=== PATIENT | male | born 1960 | race Caucasian/White ===

== ENCOUNTER 2017-05-31 12:43 | Emergency (ER) | payer MEDICAID, OTHER ==
[2017-05-31] MEDS ORDERED: Sodium Chloride 0.9% 10 ML Syringe FLUSH PRN (13:48)
[2017-05-31] MEDS ORDERED: Ondansetron 4 MG/2 ML SDV IVPUSH ONE (13:48)
--- NOTE | 2017-05-31 13:48 | EDM.PDOC ---
ED HPI GENERAL MEDICAL PROBLEM - General Chief Complaint: Gastrointestinal Problem Stated Complaint: POSS. APPENDICITIS Time Seen by Provider: 05/31/17 12:59 Source of Information: Reports: Patient History Limitations: Reports: No Limitations - History of Present Illness INITIAL COMMENTS - FREE TEXT/NARRATIVE: Patient is a 56-year-old male who presents to the ED complaining of right lower quadrant abdominal pain off and on for the past 3 weeks. States as of recently the pain has progressively getting worse. Pain currently described as a dull ache all the time with intermittent sharp pains as well. Pain is worsened with riding in a car hitting bumps, walking, moving his legs, with little improvement lying still. He's had no documented fever or chills. He has had some night sweats. Has been mildly nauseated intermittently with no vomiting. Denies any diarrhea, constipation, blood in his stool, dysuria, SOB, or chest pain. Last bowel movement was 4 days ago. But notes he has a poor appetite for the past week. Has lost approx. 6-7 pounds over the past wk. He has no prior history of similar symptoms. He was evaluated today at the [facility]. He had blood work obtained including: CBC, CMP, CRP, amylase, UA, and CT abdomen of the pelvis with contrast. See records for results. Past medical history includes hypertension, and alcoholism Current medications Benicar Surgical history right knee Smoking history half pack to two thirds a pack per day. Alcohol 5 days a week. Admits to having alcoholic issues. Denies any recreational drug use. Right Lower Abdomen Pain Score (Numeric/FACES): 7 - Related Data Allergies Allergy/AdvReac Type Severity Reaction Status Date / Time No Known Allergies Allergy Verified 05/31/17 13:39 Home Meds: Home Meds Cyanocobalamin (Vitamin B-12) [B-12] 6,000 mcg PO DAILY 05/31/17 [History] Ferrous Sulfate 325 mg PO BID 05/31/17 [History] Multivitamin [Multivitamins] 1 cap PO DAILY 05/31/17 [History] Olmesartan/Hydrochlorothiazide [Benicar HCT 40-25 MG] 1 tab PO DAILY 05/31/17 [ History] Sildenafil Citrate [Sildenafil] 20 mg PO ASDIRECTED 05/31/17 [History] Past Medical History HEENT History: Reports: Impaired Vision Social & Family History - Tobacco Use Smoking Status *Q: Never Smoker - Caffeine Use Caffeine Use: Reports: Coffee, Soda - Recreational Drug Use Recreational Drug Use: No ED ROS GENERAL - Review of Systems Review Of Systems: ROS reveals no pertinent complaints other than HPI. ED EXAM, GI/ABD - Physical Exam Exam: See Below Exam Limited By: No Limitations General Appearance: Alert, WD/WN, No Apparent Distress Eyes: Bilateral: Normal Appearance Ears: Hearing Grossly Normal Nose: Normal Inspection Throat/Mouth: Normal Inspection, Normal Voice, No Airway Compromise Head: Atraumatic, Normocephalic Neck: Normal Inspection, Supple, Non-Tender, Full Range of Motion. No: Lymphadenopathy (L), Lymphadenopathy (R) Respiratory/Chest: No Respiratory Distress, Rhonchi, Wheezing Cardiovascular: Normal Peripheral Pulses, Regular Rate, Rhythm, No Murmur GI/Abdominal: Normal Bowel Sounds, Soft, No Organomegaly, No Distention, McBurney's Sign, Psoas Sign, Obturator Sign, Other (Periumbilical). No: Rovsing 's Sign Back Exam: Normal Inspection Extremities: Normal Range of Motion, Non-Tender, Pedal Edema (Pitting edema midshin down bilaterally). No: Leg Pain Neurological: Alert, Oriented, CN II-XII Intact, Normal Cognition, No Motor/ Sensory Deficits Psychiatric: Normal Affect, Normal Mood Skin Exam: Warm, Dry, Intact, Normal Color Course - Vital Signs Last Recorded V/S: Last Vital Signs Temp 98.7 F 05/31/17 12:51 Pulse 90 05/31/17 17:02 Resp 18 05/31/17 17:02 BP 152/96 H 05/31/17 17:02 Pulse Ox 90 L 05/31/17 17:02 - Orders/Labs/Meds Orders: Active Orders 24 hr Category Date Time Status Peripheral IV Care [RC] . DIRECTED Care 05/31/17 13:49 Active CULTURE BLOOD [BC] Stat Lab 05/31/17 15:35 Received CULTURE BLOOD [BC] Stat Lab 05/31/17 15:43 Received Blood Culture x2 Reflex Set [OM.PC] Stat Oth 05/31/17 15:14 Ordered Peripheral IV Insertion Adult [OM.PC] Stat Oth 05/31/17 13:48 Ordered Labs: Laboratory Tests 05/31/17 05/31/17 05/31/17 Range/Units 14:04 14:04 15:43 Lactic Acid 1.0 (0.4-2.0) mmol/L Lipase 2935 H (73-393) U/L Ethyl Alcohol 0.00 (0.00) gm% Meds: Medications Discontinued Medications Generic Name Dose Route Start Last Admin Trade Name Freq PRN Reason Stop Dose Admin Hydromorphone HCl 0.5 mg 05/31/17 13:49 05/31/17 14:06 Dilaudid IVPUSH 05/31/17 13:50 0.5 mg ONETIME ONE Administration Sodium Chloride 1,000 mls @ 250 mls/hr 05/31/17 14:00 05/31/17 14:06 Normal Saline IV 250 mls/hr ASDIRECTED CECI Administration Ceftriaxone Sodium 2 gm/ 100 mls @ 200 mls/hr 05/31/17 15:41 05/31/17 15:48 Sodium Chloride IV 05/31/17 16:10 200 mls/hr ONETIME ONE Administration Ondansetron HCl 4 mg 05/31/17 13:48 05/31/17 14:06 Zofran IVPUSH 05/31/17 13:49 4 mg ONETIME ONE Administration Sodium Chloride 10 ml 05/31/17 13:48 05/31/17 14:05 Saline Flush FLUSH 10 ml ASDIRECTED PRN Administration Keep Vein Open - Re-Assessments/Exams Free Text/Narrative Re-Assessment/Exam: Labs obtained at [facility]: White blood cell count 7.8, hemoglobin is 17.8, platelet count 325, neutrophil percentage is 81, glucose 137, BUN 27, creatinine 1.49, sodium 134, potassium 3.6, CO2 34, alk phosphatase 76, AST 21, AST 18, amylase is 907, CRP is 112.7. CT abdomen and pelvis with contrast: Mild prominence/thickening of the right lower quadrant appendix which may be reactive secondary to moderate generalized ascites. This lies anterior to the cecum and should be visible on ultrasound evaluation. Early appendicitis is not excluded. Clinical correlation requested. Considered ultrasound for further evaluation. Mild hyper enhancement of gallbladder wall without gallbladder wall thickening. No dilatation of the common bile duct is identified. Consider ultrasound for further evaluation. 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 2.8 x 2.0 x 2.5 cm cystic lesion involving the tail the pancreas. 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 Geographic groundglass opacities throughout the right middle lobe. Partially visualized. Moderate ascites. Per PCP: Probable acute appendicitis. Questionable pancreatitis. Pancreatic cyst. Alcoholism. Patient currently stable but in pain. Since the ER for fluids and pain control and need for general surgery evaluation. Patient is nothing by mouth at this time. Discussed patient with Dr. Andres occupational health and safety adviser general surgeon. She request patient be transferred to [place]. Patient does not have appendicitis. He is complicated patient exceeding our capabilities. Suggests transferring to [place] for further workup of the above findings. 05/31/17 13:50 order peripheral IV with normal saline 250 mils per hour, Zofran 4 mg IVP, and Dilaudid 0.5 mg IVP. Will arrange acceptance and transport. 05/31/17 13:51Obtained lipase and UA. Blood cultures x2 plus lactic acid ordered. 05/31/17 15:15 Contacted [facility]. Spoke with Dr. Palomino patient is not a surgical candidate. Spoke with occupational health and safety adviser hospitalists Dr. Harrison. He has accepted the patient. Suggest patient be transferred by ambulance. In addition suggest starting patient on Rocephin 2 g IV for spontaneous peritonitis. Patient will be a direct admission inpatient status. 05/31/17 15:29 Discussed conversation with Patient. He is adamant in going by POV. He will not pay the ambulance discharge. Thus will get the antibiotic someplace. He will have to go through the ER at [facility] and be reevaluated all over again. Patient is aware this but does not have insurance and doesn't monitor for ambulance discharge. 05/31/17 15:42 Ordered Rocephin 2 grams IV. Will discharge patient with instructions as documented. Lipase 2935, Lactic Acid 1.0, ETOH 0.00. Departure - Departure Time of Disposition: 16:40 Disposition: DC/Tfer to Acute Hospital 02 Condition: Fair Clinical Impression: Abdominal pain in male, Elevated amylase, Cystic mass of pancreas, Alcoholic Ascites Qualifiers: Ascites type: due to alcoholic cirrhosis Qualified Code(s): K70.31 - Alcoholic cirrhosis of liver with ascites - Discharge Information Instructions: Alcohol Use Disorder, Abdominal Pain, Adult, [id number], Ascites Referrals: Oliverio Dawson MD [Primary Care Provider] - Forms: ED Department Discharge Additional Instructions: As discussed go to the [facility] in [place] as soon as you are discharged from [facility] to be evaluated and admitted to the hospital for further evaluation. Refrain from eating or drinking until cleared to do so. No driving since receiving a sedative medication. - My Orders Last 24 Hours: My Active Orders 05/31/17 13:48 Peripheral IV Insertion Adult [OM.PC] Stat 05/31/17 13:49 Peripheral IV Care [RC] . DIRECTED 05/31/17 15:14 Blood Culture x2 Reflex Set [OM.PC] Stat 05/31/17 15:35 CULTURE BLOOD [BC] Stat 05/31/17 15:43 CULTURE BLOOD [BC] Stat - Assessment/Plan Last 24 Hours: My Active Orders 05/31/17 13:48 Peripheral IV Insertion Adult [OM.PC] Stat 05/31/17 13:49 Peripheral IV Care [RC] . DIRECTED 05/31/17 15:14 Blood Culture x2 Reflex Set [OM.PC] Stat 05/31/17 15:35 CULTURE BLOOD [BC] Stat 05/31/17 15:43 CULTURE BLOOD [BC] Stat
[2017-05-31] MEDS ORDERED: HYDROmorphone 0.5 MG/0.5 ML Syringe IVPUSH ONE (13:49)
[2017-05-31] MEDS ORDERED: Sodium Chloride 0.9% 1,000 ML IV SCH (14:00)
[2017-05-31] MEDS ORDERED: cefTRIAXone 2 GM in Sodium Chloride 0.9% 100 ML IV ONE (15:41)
[2017-05-31 17:10] VITALS: BP 152/96
== END 2017-05-31 16:40 ==
LOC: JD.ED 12:43 → MERGE 12:43 → JD.ED 16:40
DX: K70.31 Alcoholic cirrhosis of liver with ascites (principal); K86.2 Cyst of pancreas; R74.8 Abnormal levels of other serum enzymes; I10 Essential (primary) hypertension; Z79.899 Other long term (current) drug therapy
CPT/HCPCS: 36415; 83605; 83690; 87040; 96361; 96365; 96375; 99285; G0480; J0696; J1170; J2405; J7030; J7040; J7050; 99284

== ENCOUNTER 2017-07-04 09:41 | Emergency (ER) | payer MEDICAID ==
[2017-07-04] MEDS ORDERED: Furosemide 40 MG/4 ML VIAL IVPUSH ONE (10:13)
[2017-07-04] MEDS ORDERED: Sodium Chloride 0.9% 10 ML Syringe FLUSH PRN (10:13)
--- NOTE | 2017-07-04 10:16 | EDM.PDOC ---
ED HPI GENERAL MEDICAL PROBLEM - General Chief Complaint: Cardiovascular Problem Stated Complaint: BOTH LEGS SWOLLEN Time Seen by Provider: 07/04/17 10:11 Source of Information: Reports: Patient, Family History Limitations: Reports: No Limitations - History of Present Illness INITIAL COMMENTS - FREE TEXT/NARRATIVE: 56-year-old male presents to the ED due to increased pain and swelling of his left lower extremity over the last 3-4 days. Patient is known to have cirrhosis the liver with ascites and has had paracentesis on several occasions. Also noted to have a large cystic lesion in the tail of pancreas which is of unclear significance. He has chronic dependent edema at all times but the left leg is been become much more swollen over the last 3-4 days and pain started in his left groin and radiates down down to the calf. When he tries to walk or stand it 's like a severe charley horse. He is appreciated oozing of serous fluid from 2 lesions on the lateral lower leg over the last day or 2 as well. No associated fever or chills. He doesn't feel that his abdomen girth is any worse than normal .He has very limited room for food. Has chronic abdominal pain that is worsened with eating. It is mostly epigastric left upper quadrant. He has had his appendix out recently through laparoscopic evaluation None of the wounds are oozing fluid. No recent change to his diuretic regime. Stools remain loose and he is on a stool softener as well. Denies any chest pain. He is sitting up however to sleep as it's more comfortable. Onset: Gradual Onset Date: 07/01/17 Duration: Day(s):, Constant, Getting Worse Location: Reports: Lower Extremity, Left Quality: Reports: Ache, Throbbing, Other (Cramping at times like a bad charley horse.) Severity: Severe Improves with: Reports: None Worsens with: Reports: Movement (Trying to walk or weight-bear) Context: Reports: Activity, Other (Known cirrhosis of the liver with ascites.). Denies: Exercise, Lifting, Sick Contact, Trauma Associated Symptoms: Reports: Loss of Appetite, Malaise, Shortness of Breath ( At times), Other (Ascites with increased abdominal girth.). Denies: Fever/ Chills, Headaches Treatments ON SITE MANAGER: Reports: Other (see below) Left Leg Pain Score (Numeric/FACES): 4 - Related Data Allergies Allergy/AdvReac Type Severity Reaction Status Date / Time No Known Allergies Allergy Verified 07/05/17 23:36 Home Meds: Home Meds Cyanocobalamin (Vitamin B-12) [B-12] 6,000 mcg PO DAILY 05/31/17 [History] Ferrous Sulfate 325 mg PO DAILY 05/31/17 [History] Multivitamin [Multivitamins] 1 tab PO DAILY 05/31/17 [History] Sildenafil Citrate [Sildenafil] 20 mg PO ASDIRECTED 05/31/17 [History] Enoxaparin Sodium [Lovenox] 65 mg SQ Q12H #9 ml 07/04/17 [Rx] Furosemide [Lasix] 40 mg PO DAILY #30 tablet 07/04/17 [Rx] Sennosides/Docusate Sodium [Senna-Docusate Sodium] 2 tab PO DAILY 07/04/17 [ History] Spironolactone 50 mg PO DAILY 07/04/17 [History] Valsartan [Diovan] 80 mg PO DAILY 07/04/17 [History] Warfarin [Coumadin] 5 mg PO DAILY #30 tablet 07/04/17 [Rx] oxyCODONE 5 mg PO Q4H 07/04/17 [History] Past Medical History HEENT History: Reports: Impaired Vision Cardiovascular History: Reports: Hypertension Respiratory History: Reports: Other (See Below) Other Respiratory History: pneumonia Gastrointestinal History: Reports: Pancreatitis - Past Surgical History GI Surgical History: Reports: Appendectomy Social & Family History - Tobacco Use Smoking Status *Q: Current Every Day Smoker Years of Tobacco use: 30 Packs/Tins Daily: 0.5 - Caffeine Use Caffeine Use: Reports: Coffee, Soda - Recreational Drug Use Recreational Drug Use: No - Living Situation & Occupation Living situation: Reports: Single (Self-employed) Occupation: Employed [employer] - Review of Systems Review Of Systems: See Below Constitutional: Reports: Malaise, Weakness, Fatigue, Decreased Appetite (Feels his weight is remaining the same.), Other. Denies: Fever, Chills, Weight Loss HEENT: Reports: No Symptoms Respiratory: Reports: Shortness of Breath (On exertion) Cardiovascular: Reports: Dyspnea on Exertion, Edema (On exertion chronically in both lower extremities with ascites in the abdomen. On accumulation of fluid in his lungs at times.) Endocrine: Reports: Fatigue GI/Abdominal: Reports: Diarrhea (Stools tend to be loose. No blood), Decreased Appetite ( ascites.), Distension ( bowel much room for food.due to ascites. ), Other (Abdominal distention due to). Denies: Nausea, Stool Incontinence, Vomiting : Reports: No Symptoms Musculoskeletal: Reports: Back Pain (Low back pain at times.) Skin: Reports: Other (Skin is breaking down outer aspect of the left lower leg due to the swelling losing serous fluid in 2 locations.) Neurological: Reports: No Symptoms Psychiatric: Reports: No Symptoms Hematologic/Lymphatic: Reports: No Symptoms Immunologic: Reports: No Symptoms ED EXAM, GENERAL - Physical Exam Exam: See Below Exam Limited By: No Limitations General Appearance: Alert, WD/WN, No Apparent Distress Eye Exam: Bilateral Eye: Normal Inspection (No jaundice.) Throat/Mouth: Normal Inspection, Normal Oropharynx Head: Atraumatic, Normocephalic Neck: Normal Inspection, Supple, Non-Tender, Full Range of Motion. No: Lymphadenopathy (L), Lymphadenopathy (R) Respiratory/Chest: Lungs Clear (Mild tachypnea at rest.), Normal Breath Sounds, No Accessory Muscle Use, Chest Non-Tender, Respiratory Distress Cardiovascular: Regular Rate, Rhythm, No Gallop, No Murmur, No Rub. No: Normal Peripheral Pulses Peripheral Pulses: 0: Radial (R), Posterior Tibial (L) (No pulses are palpable below the femorals because of severe edema particularly of the feet.), Posterior Tibial (R), Dorsalis Pedis (L), 4+: Dorsalis Pedis (R) GI/Abdominal: Soft, Non-Tender, Distended (Firm to palpation distended with a fluid wave compatible with marked ascites.), Other (Recent appendectomy done laparoscopically wounds healing well. Apical induce a period) Back Exam: Normal Inspection. No: CVA Tenderness (L), CVA Tenderness (R) Extremities: Other (Both lower extremities have edematous swelling. 2+ on the right and 4+ on the left the left is firm and hard up to the groin worrisome for underlying DVT. There is oozing from 2 small 3-4 mm ulcers developing lateral aspect of the lower leg of serous fluid. There is no active infection or cellulitis. Both feet remain grossly edematous) Neurological: Alert, Oriented, CN II-XII Intact, Normal Cognition. No: Normal Gait Psychiatric: Normal Affect Skin Exam: Warm, Dry, Intact, Normal Color, No Rash Course - Vital Signs Last Recorded V/S: Last Vital Signs Temp 36.4 C 07/04/17 09:49 Pulse 102 H 07/04/17 15:35 Resp 20 07/04/17 15:35 BP 111/71 07/04/17 15:35 Pulse Ox 96 07/04/17 15:35 - Orders/Labs/Meds Labs: Laboratory Tests 07/04/17 07/04/17 07/04/17 Range/Units 10:32 10:32 10:32 WBC 15.64 H (4.23-9.07) K/mm3 RBC 3.51 L (4.63-6.08) M/mm3 Hgb 12.1 L (13.7-17.5) gm/L Hct 36.5 L (40.1-51.0) % MCV 104.0 H (79.0-92.2) fl MCH 34.5 H (25.7-32.2) pg MCHC 33.2 (32.2-35.5) g/dl RDW Std Deviation 57.9 H (35.1-43.9) fL Plt Count 372 H (163-337) K/mm3 MPV 9.6 (9.4-12.3) fl Neutrophils % (Manual) 81 H (40-60) % Band Neutrophils % 0 (0-10) % Lymphocytes % (Manual) 16 L (20-40) % Atypical Lymphs % 0 % Monocytes % (Manual) 3 (2-10) % Eosinophils % (Manual) 0 L (0.8-7.0) % Basophils % (Manual) 0 L (0.2-1.2) Platelet Estimate Adequate Poikilocytosis 1+ slight Anisocytosis 1+ slight RBC Morph Comment Not Reportable PT 11.3 (8.0-13.0) SECONDS INR 1.03 APTT 28 (22-36) SECONDS D-Dimer, Quantitative 24.64 H (0.19-0.59) mg/L Sodium 133 L (136-145) mEq/L Potassium 3.8 (3.5-5.1) mEq/L Chloride 97 L (98-107) mEq/L Carbon Dioxide 34 H (21-32) mEq/L Anion Gap 5.8 (5-15) BUN 26 H (7-18) mg/dL Creatinine 1.6 H (0.7-1.3) mg/dL Est Cr Clr Drug Dosing 46.86 mL/min Estimated GFR (MDRD) 45 (>60) mL/min BUN/Creatinine Ratio 16.3 (14-18) Glucose 113 H (74-106) mg/dL Calcium 8.4 L (8.5-10.1) mg/dL Total Bilirubin 0.5 (0.2-1.0) mg/dL AST 14 L (15-37) U/L ALT 13 L (16-63) U/L Alkaline Phosphatase 51 (46-116) U/L Uos-B-Zueonjsmanr Pept 374 H (0-125) pg/mL Total Protein 5.5 L (6.4-8.2) g/dl Albumin 2.0 L (3.4-5.0) g/dl Globulin 3.5 gm/dL Albumin/Globulin Ratio 0.6 L (1-2) Lipase 1373 H (73-393) U/L TSH 3rd Generation (0.358-3.74) uIU/mL /05/15 Range/Units 10:32 WBC (4.23-9.07) K/mm3 RBC (4.63-6.08) M/mm3 Hgb (13.7-17.5) gm/L Hct (40.1-51.0) % MCV (79.0-92.2) fl MCH (25.7-32.2) pg MCHC (32.2-35.5) g/dl RDW Std Deviation (35.1-43.9) fL Plt Count (163-337) K/mm3 MPV (9.4-12.3) fl Neutrophils % (Manual) (40-60) % Band Neutrophils % (0-10) % Lymphocytes % (Manual) (20-40) % Atypical Lymphs % % Monocytes % (Manual) (2-10) % Eosinophils % (Manual) (0.8-7.0) % Basophils % (Manual) (0.2-1.2) Platelet Estimate Poikilocytosis Anisocytosis RBC Morph Comment PT (8.0-13.0) SECONDS INR APTT (22-36) SECONDS D-Dimer, Quantitative (0.19-0.59) mg/L Sodium (136-145) mEq/L Potassium (3.5-5.1) mEq/L Chloride (98-107) mEq/L Carbon Dioxide (21-32) mEq/L Anion Gap (5-15) BUN (7-18) mg/dL Creatinine (0.7-1.3) mg/dL Est Cr Clr Drug Dosing mL/min Estimated GFR (MDRD) (>60) mL/min BUN/Creatinine Ratio (14-18) Glucose (74-106) mg/dL Calcium (8.5-10.1) mg/dL Total Bilirubin (0.2-1.0) mg/dL AST (15-37) U/L ALT (16-63) U/L Alkaline Phosphatase (46-116) U/L Tjp-I-Woofqiduwpi Pept (0-125) pg/mL Total Protein (6.4-8.2) g/dl Albumin (3.4-5.0) g/dl Globulin gm/dL Albumin/Globulin Ratio (1-2) Lipase (73-393) U/L TSH 3rd Generation 2.237 (0.358-3.74) uIU/mL Meds: Medications Discontinued Medications Generic Name Dose Route Start Last Admin Trade Name Freq PRN Reason Stop Dose Admin Enoxaparin Sodium 65 mg 07/04/17 11:39 07/04/17 12:43 Lovenox SUBCUT 07/04/17 11:40 Not Given ONETIME ONE Enoxaparin Sodium 65 mg 07/04/17 12:17 07/04/17 12:26 Lovenox SUBCUT 07/04/17 12:18 65 mg ONETIME ONE Administration Furosemide 40 mg 07/04/17 10:13 07/04/17 10:40 Lasix IVPUSH 07/04/17 10:14 40 mg NOW ONE Administration Sodium Chloride 100 mls @ 60 mls/hr 07/04/17 12:00 07/04/17 12:10 Normal Saline IV 60 mls/hr ASDIRECTED CECI Administration Iopamidol 100 ml 07/04/17 11:52 07/04/17 12:10 Isovue-370 (76%) IVPUSH 07/04/17 11:53 70 ml ONETIME ONE Administration Sodium Chloride 10 ml 07/04/17 10:13 07/04/17 10:40 Saline Flush FLUSH 10 ml ASDIRECTED PRN Administration Keep Vein Open Sodium Chloride 10 ml 07/04/17 11:52 07/04/17 12:10 Saline Flush FLUSH 07/04/17 11:53 10 ml ONETIME ONE Administration Warfarin Sodium 10 mg 07/04/17 14:37 07/04/17 15:30 Coumadin PO 07/04/17 14:38 10 mg ONETIME ONE Administration - Radiology Interpretation Free Text/Narrative:: 56-year-old male presents to the ED because of increased pain and swelling in his left lower extremity. Pain started about 3 days ago in his left groin and subsequently his move down towards the left calf. When he stands or tries to walk as like he develops a severe charley horse. Cramping like pain that limits his ability to walk. Patient has cirrhosis of the liver with ascites and has had paracentesis in the past. Underwent recent laparoscopic appendectomy. The left leg or both legs are always swollen a bit but the left leg is grossly swollen more than normal. Did not feel that current diuretic therapy is producing much in the way of diuresis. However he doesn't feel his abdominal girth is worse than normal either. Lungs sound clear. Plan routine labs including a BMP and lipase and PTT PT. Doppler ultrasound will be done on the left lower extremity. Peripheral IV lock placed and he'll be given Lasix 40 mg IV. - Re-Assessments/Exams Free Text/Narrative Re-Assessment/Exam: 07/04/17 11:10: Labs reveal an elevated white count at 15.64 with a left shift of 81% neutrophils and no bands. Of note the patient is afebrile. Hemoglobin is 12.1 with hematocrit of 36.5. Platelets are normal at 372,000. Coags reveal a PT of 11.3 INR is 1.03 PTT is 28. All normal d-dimer came back markedly elevated at 24.64. Sodium was 133 potassium 3.8. Sodium and chloride 97 bicarbonate 34 meaning that he is a CO2 retainer. Anion gap is 5.8. Creatinine is 1.6. BUNs 26 EGFR is 45. Total protein is 5.5 with albumin fraction low at 2.0. TSH is 2.237 normal. Lipase elevated at 1373. Doppler ultrasound done on his left lower extremity reveals extensive clot throughout the entire leg. Superficial femoral vein apparently is patent. Ascites was identified on ultrasound E. The left internal iliac vein appeared to be patent. Plan CT pulmonary angiogram to be carried out to rule out pulmonary embolism since she' s been a little more short of breath than normal. BNP today is slightly elevated at 374. Plan he will be given Lovenox 65 mg subcutaneously at this time. He will be admitted to the hospital as he simply can't walk due to the severity of the pain in his left lower extremity due to the extensive clot. 07/04/17 13:[address] pulmonary angiogram there are several pulmonary emboli appreciated within the segmental branches of the right upper lobe and left lower pulmonary arteries. Segmental clot is also seen within the lingular pulmonary artery on the left side. Segmental clot extends into the left lower lung. Slight parenchymal densities noted in the right upper lung most likely due to areas of atelectasis and fibrosis. Difficult to exclude a middle right upper lobar pneumonia. Treatment remains the same. Case discussed with Dr. Morales and he will revisit with the patient in the ED. Today his multiple problems he's considering whether or not he is a patient or candidate for admission here versus going back to [facility] in [place]. Patient was in [facility] June 02 and and I believe an MRI of his abdomen was carried out at that time. We will try and obtain these records. 07/04/17:9933: I did discuss case with medical facilities section director hospitalist at [facility] and he refused to accept Mr. Rojas is a patient. He felt he could be managed here in [place] with Lovenox shots. Dr. zayas it did not become important in keeping the patient here. Therefore alternative arrangements were made for the patient received Lovenox subcutaneously on his own volition at his home. He was shown a video and again demonstrated subcutaneous saline injections so that he could give himself Lovenox shots at home. He'll be placed on Coumadin 10 mg now 7.5 mg tomorrow and then start 5 mg daily. He is to follow with Dr. luna in the clinic on for PT/INR and see if he needs to continue with Lovenox shots. He will elevate his left leg is much as possible and apply heat packs to the area to try and reduce clot burden. He feels he can live on clear fluids in regards to his pancreatitis is the abdominal pain is not that bad at this time and he has pain medication at home. Departure - Departure Time of Disposition: 14:38 Disposition: Home, Self-Care 01 Reason for Transfer *Q: Other Condition: Fair Clinical Impression: Pulmonary embolism, bilateral Left leg DVT Qualifiers: Affected thrombotic vein of extremity: unspecified lower extremity proximal vein Chronicity: acute Qualified Code(s): I82.4Y2 - Acute embolism and thrombosis of unspecified deep veins of left proximal lower extremity Ascites Qualifiers: Ascites type: due to alcoholic cirrhosis Qualified Code(s): K70.31 - Alcoholic cirrhosis of liver with ascites Pancreatitis, chronic Qualifiers: Pancreatitis type: idiopathic Qualified Code(s): K86.1 - Other chronic pancreatitis Prescriptions: Enoxaparin Sodium [Lovenox] 65 mg SQ Q12H #9 ml Furosemide [Lasix] 40 mg PO DAILY #30 tablet Warfarin [Coumadin] 5 mg PO DAILY #30 tablet Instructions: Ascites, Pulmonary Embolism, Deep Vein Thrombosis Referrals: Oliverio Dawson MD [Primary Care Provider] - Forms: ED Department Discharge Additional Instructions: Evaluation in the emergency department today in regards to painful swollen left lower extremity that has developed over the last 3-4 days. Investigations completed identified substantial clot or deep venous thrombosis throughout the left lower extremity. CT pulmonary angiogram also revealed small worsens of blood clot her broken off from the leg and have traveled into some of the arteries in both lungs. This is called pulmonary embolism. This is somehow related to the fluid accumulation in your abdomen i.e. ascites. The reason for the ascites is yet to be determined and thus the reason you're going to [place] for further investigations on the are 14 of this month. Treatment decisions been made to allow you to be treated at home by giving yourself Lovenox injections every 12 hours for the next 5 days. Lovenox injection would be due would say at midnight tonight and then at 12:00 / noon tomorrrow. Should try and elevate the leg is much as possible and stay off the leg is much as possible for the next 3 days until the medication is working well and the clot is less likely to break loose and travel from the leg to the lung. You are to start Coumadin today and 10 mg dose was given in the ED then you need to take 1-1/2 tablets of the 5 mg strength tomorrow then 5 mg or 1 tablet daily after this. You will need a PT/INR or checkup on the Coumadin level at the clinic on this week. Please make arrangements to follow- up with Dr. Manning in this regard. Warm packs or hot water bottle to the leg is much as possible will help resolve blood clot within the veins of the leg. Return to the emergency room if any further difficulties occur. Medication can be picked up at [facility] pharmacy across the street from [facility] this afternoon. A open till 4:00 pm. Medication changes are to discontinue hydrochlorothiazide and replace with Lasix or furosemide 40 mg once daily in the morning with the Aldactone 50 mg tablet once daily in the morning. These will be used for fluid retention to control the amount of fluid accumulation in your legs and abdomen.
[2017-07-04] MEDS ORDERED: Enoxaparin 60 MG/0.6 ML Syringe SUBCUT ONE (11:39)
[2017-07-04] MEDS ORDERED: Iopamidol 755 Mg/ML 100 ML Bottle IVPUSH ONE (11:52)
[2017-07-04] MEDS ORDERED: Sodium Chloride 0.9% 10 ML Syringe FLUSH ONE (11:52)
--- NOTE | 2017-07-04 11:55 | US ---
Left lower extremity venous ultrasound: Duplex and color flow imaging was obtained of the left common femoral, proximal greater saphenous, superficial femoral, popliteal, posterior tibial and peroneal veins. Right common femoral vein was also evaluated. Lack of compression and phasic flow is seen throughout the left lower extremity with the exception of the greater saphenous vein which is compressible. Right common femoral vein is patent. Impression: 1. Extensive clot throughout the left lower extremity with patency of the greater saphenous vein and right common femoral vein. Diagnostic code #5
[2017-07-04] MEDS ORDERED: Sodium Chloride 0.9% 100 ML IV SCH (12:00)
[2017-07-04] MEDS ORDERED: Enoxaparin 80 MG/0.8 ML Syringe SUBCUT ONE (12:17)
--- NOTE | 2017-07-04 12:46 | CT ---
CT chest Technique: Multiple axial sections were obtained to the chest. Intravenous contrast was utilized. Study was performed as a pulmonary angiogram protocol. Findings: Moderate amount of ascites is seen within the upper abdomen. No pericardial thickening is seen. Heart size appears within normal limits. Several pulmonary emboli are seen within segmental branches of the right upper lobe and left lower pulmonary arteries. Segmental clot is seen within the lingular pulmonary artery. Segmental clot extends into the left lower lung. No other pulmonary emboli are seen on this exam. Mediastinum and hilar regions show no adenopathy or mass. Slight parenchymal density is noted within the right upper lung most likely due to areas of atelectasis and fibrosis. Difficult to completely exclude a mild right upper lobe pneumonia. Lungs otherwise are clear. Bone window settings were reviewed which shows scattered degenerative change within the spine. Several subacute right-sided rib fractures are seen which are incompletely healed and show mild callus. Impression: 1. Small pulmonary emboli as described above. 2. Several subacute rib fractures within the right chest. 3. Nonspecific ascites within the upper abdomen. 4. Mild areas of increased density within the right upper lung most likely due to areas of fibrosis and atelectasis although difficult to exclude pneumonia. Diagnostic code #5
[2017-07-04] MEDS ORDERED: Warfarin 10 MG Tab PO ONE (14:37)
[2017-07-04 16:04] VITALS: BP 111/71
== END 2017-07-04 15:40 | disposition home or self-care (01) ==
LOC: JD.ED 09:41
DX: I26.99 Other pulmonary embolism without acute cor pulmonale (principal); I82.4Y2 Acute embolism and thrombosis of unspecified deep veins of left proximal lower extremity; K70.31 Alcoholic cirrhosis of liver with ascites; K86.1 Other chronic pancreatitis; I10 Essential (primary) hypertension; F17.210 Nicotine dependence, cigarettes, uncomplicated; Z79.01 Long term (current) use of anticoagulants; Z87.01 Personal history of pneumonia (recurrent); Z90.49 Acquired absence of other specified parts of digestive tract; Z79.899 Other long term (current) drug therapy
CPT/HCPCS: 36415; 71275; 80053; 83690; 83880; 84443; 85025; 85379; 85610; 85730; 93971; 96372; 96374; 99284; A9270; J1650; J1940; J7030; J7050; Q9967

== ENCOUNTER 2017-07-05 23:26 | Emergency (ER) | payer MEDICAID ==
[2017-07-05 23:41] VITALS: BP 95/69
[2017-07-06] MEDS ORDERED: Sodium Chloride 0.9% 10 ML Syringe FLUSH PRN (00:15)
[2017-07-06] MEDS ORDERED: Ondansetron 4 MG/2 ML SDV IVPUSH ONE (00:17)
[2017-07-06] MEDS ORDERED: Sodium Chloride 0.9% 500 ML IV ONE ×2 (00:17→01:48)
--- NOTE | 2017-07-06 00:18 | EDM.PDOC ---
ED HPI GENERAL MEDICAL PROBLEM - General Chief Complaint: Respiratory Problem Stated Complaint: IN PAIN/CAN'T CATCH BREATH Time Seen by Provider: 07/05/17 23:47 Source of Information: Reports: Patient, RN Notes Reviewed - History of Present Illness INITIAL COMMENTS - FREE TEXT/NARRATIVE: 56-year-old male comes in with right lower chest discomfort, dyspnea, right upper abdominal pain, ascites, nausea generalized weakness and dizziness. He was evaluated here water day and a half ago increasing left lower extremity pain and swelling. He was diagnosed with a venous thrombosis of his left lower extremity, CT pulmonary angiogram did show multiple PE primarily of the right upper lung and left lower lung. See radiology reports for details. Attempts for admission here to our hospital and also verbal report of attempt to transfer to one of the [facility], I believe [facility] did not work out. 4 patient was allowed to go home self administering Lovenox. He did have 2 Lovenox injections yesterday, one this past morning but has not yet had his p.m. injection. He comes in this evening stating that "it is not working out at home. He has no appetite, nausea is worsening. He feels dizzy, weak, lightheaded when standing. He does have worsening discomfort as mentioned right lower chest and also right upper abdomen that is worse with breathing. He has had worsening difficulty with ascites apparently for the past several months. He did have his appendix out just over a month ago. He is reported to have a cyst on the tail of his pancreas. His amylase was elevated yesterday. Other labs as documented. Right Flank Pain Score (Numeric/FACES): 7 - Related Data Allergies Allergy/AdvReac Type Severity Reaction Status Date / Time No Known Allergies Allergy Verified 07/05/17 23:36 Home Meds: Home Meds Cyanocobalamin (Vitamin B-12) [B-12] 6,000 mcg PO DAILY 05/31/17 [History] Ferrous Sulfate 325 mg PO DAILY 05/31/17 [History] Multivitamin [Multivitamins] 1 tab PO DAILY 05/31/17 [History] Sildenafil Citrate [Sildenafil] 20 mg PO ASDIRECTED 05/31/17 [History] Enoxaparin Sodium [Lovenox] 65 mg SQ Q12H #9 ml 07/04/17 [Rx] Furosemide [Lasix] 40 mg PO DAILY #30 tablet 07/04/17 [Rx] Sennosides/Docusate Sodium [Senna-Docusate Sodium] 2 tab PO DAILY 07/04/17 [ History] Spironolactone 50 mg PO DAILY 07/04/17 [History] Valsartan [Diovan] 80 mg PO DAILY 07/04/17 [History] Warfarin [Coumadin] 5 mg PO DAILY #30 tablet 07/04/17 [Rx] oxyCODONE 5 mg PO Q4H 07/04/17 [History] Past Medical History HEENT History: Reports: Impaired Vision Other HEENT History: Wears glasses Cardiovascular History: Reports: Blood Clots/VTE/DVT, Hypertension Respiratory History: Reports: PE, Other (See Below) Other Respiratory History: pneumonia Gastrointestinal History: Reports: Pancreatitis - Past Surgical History GI Surgical History: Reports: Appendectomy Social & Family History - Tobacco Use Smoking Status *Q: Current Every Day Smoker Years of Tobacco use: 30 Packs/Tins Daily: 0.5 - Caffeine Use Caffeine Use: Reports: Coffee, Soda - Recreational Drug Use Recreational Drug Use: No - Living Situation & Occupation Living situation: Reports: Single (Self-employed) Occupation: Employed ED ROS GENERAL - Review of Systems Review Of Systems: See Below Constitutional: Denies: Fever, Chills, Diaphoresis HEENT: Denies: Throat Pain Respiratory: Reports: Shortness of Breath, Pleuritic Chest Pain, Cough. Denies : Sputum, Hemoptysis Cardiovascular: Reports: Chest Pain (Right lower chest) GI/Abdominal: Reports: Abdominal Pain (Right upper abdomen), Nausea. Denies: Diarrhea, Vomiting : Reports: No Symptoms Musculoskeletal: Reports: Back Pain (Right back) Skin: Reports: No Symptoms. Denies: Rash Neurological: Reports: Dizziness, Difficulty Walking, Weakness (Generalized). Denies: Numbness, Tingling ED EXAM, GENERAL - Physical Exam Exam: See Below General Appearance: Alert, Moderate Distress Eye Exam: Bilateral Eye: PERRL Throat/Mouth: Normal Inspection, Normal Oropharynx Head: Atraumatic. No: Facial Swelling Neck: Supple. No: Lymphadenopathy (L), Lymphadenopathy (R) Respiratory/Chest: Respiratory Distress. No: Rales, Rhonchi (Moderate tachypnea noted), Wheezing, Retractions Cardiovascular: Tachycardia GI/Abdominal: Distended (Moderate distention compatible with chronic ascites), Tender (Upper mid abdomen, right upper quadrant) Back Exam: CVA Tenderness (R) Extremities: Pedal Edema (Mild left leg), Leg Pain (He does have some tenderness of the posterior left calf). No: Increased Warmth, Redness Neurological: Alert, Oriented, No Motor/Sensory Deficits Skin Exam: Warm, Dry, Normal Color EKG INTERPRETATION EKG Date: 07/05/17 Rhythm: NSR [place]: Normal P-Wave: Present QRS: Other (Q waves V2) ST-T: Normal Course - Vital Signs Last Recorded V/S: Last Vital Signs Temp 97.5 F 07/05/17 23:36 Pulse 107 H 07/05/17 23:36 Resp 18 07/05/17 23:36 BP 95/69 07/05/17 23:36 Pulse Ox 91 L 07/05/17 23:36 - Orders/Labs/Meds Orders: Active Orders 24 hr Category Date Time Status EKG 12 Lead [EKG Documentation Completion] [RC] STAT Care 07/06/17 00:14 Active Oxygen Therapy [RC] ASDIRECTED Care 07/06/17 00:14 Active Peripheral IV Care [RC] . DIRECTED Care 07/06/17 00:15 Active Chest 1V Frontal [CR] Stat Exams 07/06/17 00:14 Taken Sodium Chloride 0.9% [Normal Saline] 1,000 ml Med 07/06/17 03:30 Active IV ASDIRECTED Sodium Chloride 0.9% [Saline Flush] Med 07/06/17 00:15 Active 10 ml FLUSH ASDIRECTED PRN Peripheral IV Insertion Adult [OM.PC] Stat Oth 07/06/17 00:14 Ordered Medication Orders Sodium Chloride (Normal Saline) 1,000 mls @ 75 mls/hr IV ASDIRECTED CECI Last Admin: 07/06/17 03:29 Dose: 75 mls/hr Sodium Chloride (Saline Flush) 10 ml FLUSH ASDIRECTED PRN PRN Reason: Keep Vein Open Labs: Laboratory Tests 07/06/17 07/06/17 07/06/17 Range/Units 00:29 00:29 00:29 WBC 14.31 H (4.23-9.07) K/mm3 RBC 3.59 L (4.63-6.08) M/mm3 Hgb 12.3 L (13.7-17.5) gm/L Hct 36.8 L (40.1-51.0) % MCV 102.5 H (79.0-92.2) fl MCH 34.3 H (25.7-32.2) pg MCHC 33.4 (32.2-35.5) g/dl RDW Std Deviation 56.0 H (35.1-43.9) fL Plt Count 391 H (163-337) K/mm3 MPV 9.5 (9.4-12.3) fl Neut % (Auto) 81.4 H (34.0-67.9) % Lymph % (Auto) 4.3 L (21.8-53.1) % [place] % (Auto) 13.2 H (5.3-12.2) % Eos % (Auto) 0.3 L (0.8-7.0) Baso % (Auto) 0.2 (0.1-1.2) % Neut # (Auto) 11.64 H (1.78-5.38) K/mm3 Lymph # (Auto) 0.62 L (1.32-3.57) K/mm3 [place] # (Auto) 1.89 H (0.30-0.82) K/mm3 Eos # (Auto) 0.05 (0.04-0.54) K/mm3 Baso # (Auto) 0.03 (0.01-0.08) K/mm3 Manual Slide Review Abnormal smear PT 38.1 H (8.0-13.0) SECONDS INR 3.24 Sodium 132 L (136-145) mEq/L Potassium 4.0 (3.5-5.1) mEq/L Chloride 95 L (98-107) mEq/L Carbon Dioxide 33 H (21-32) mEq/L Anion Gap 8.0 (5-15) BUN 27 H (7-18) mg/dL Creatinine 1.7 H (0.7-1.3) mg/dL Est Cr Clr Drug Dosing 44.10 mL/min Estimated GFR (MDRD) 42 (>60) mL/min BUN/Creatinine Ratio 15.9 (14-18) Glucose 131 H (74-106) mg/dL Calcium 8.4 L (8.5-10.1) mg/dL Total Bilirubin 0.3 (0.2-1.0) mg/dL AST 15 (15-37) U/L ALT 13 L (16-63) U/L Alkaline Phosphatase 48 (46-116) U/L Total Protein 5.3 L (6.4-8.2) g/dl Albumin 2.0 L (3.4-5.0) g/dl Globulin 3.3 gm/dL Albumin/Globulin Ratio 0.6 L (1-2) Amylase 1105 H* (25-115) U/L Lipase 2192 H (73-393) U/L Meds: Medications Generic Name Dose Route Start Last Admin Trade Name Freq PRN Reason Stop Dose Admin Sodium Chloride 1,000 mls @ 75 mls/hr 07/06/17 03:30 07/06/17 03:29 Normal Saline IV 75 mls/hr ASDIRECTED CECI Administration Sodium Chloride 10 ml 07/06/17 00:15 Saline Flush FLUSH ASDIRECTED PRN Keep Vein Open Discontinued Medications Generic Name Dose Route Start Last Admin Trade Name Freq PRN Reason Stop Dose Admin Hydromorphone HCl 0.5 mg 07/06/17 03:23 07/06/17 03:33 Dilaudid IVPUSH 07/06/17 03:24 0.5 mg ONETIME ONE Administration Sodium Chloride 500 mls @ 999 mls/hr 07/06/17 00:17 07/06/17 00:34 Normal Saline IV 07/06/17 00:47 999 mls/hr .BOLUS ONE Administration Sodium Chloride 500 mls @ 999 mls/hr 07/06/17 01:48 Normal Saline IV 07/06/17 02:18 .BOLUS ONE Ondansetron HCl 4 mg 07/06/17 00:17 07/06/17 03:30 Zofran IVPUSH 07/06/17 00:18 4 mg ONETIME ONE Administration - Re-Assessments/Exams Free Text/Narrative Re-Assessment/Exam: 07/06/17 03:00. Patient has multiple medical problems, the acute problem of DVT , multiple pulmonary emboli. He came in late this last evening with increasing right lower chest, right upper quadrant abdominal pain, nausea no appetite not eating or drinking well, dizziness, hypotension. He has the chronic problems of cirrhosis, pancreatic cyst, possible acute pancreatitis, what is become chronic reoccurring ascites. With that our Hospitalist production administrative assistant is recommending that he can be better served at one of the [facility] where more specialty care is available. Patient is requesting to be transferred to [facility]. I discussed this with Dr. Chuyita Rangel, hospitalist production administrative assistant who does accept patient in transfer. He will be transferred by ground ambulance. Departure - Departure Time of Disposition: 03:39 Disposition: DC/Tfer to [facility] 02 Condition: Serious Clinical Impression: Pancreatic cyst, Renal insufficiency Pulmonary embolism Qualifiers: Pulmonary embolism type: other Chronicity: acute Acute cor pulmonale presence: without acute cor pulmonale Qualified Code(s): I26.99 - Other pulmonary embolism without acute cor pulmonale Pancreatitis Qualifiers: Chronicity: chronic Pancreatitis type: unspecified pancreatitis type Qualified Code(s): K86.1 - Other chronic pancreatitis Cirrhosis Qualifiers: Hepatic cirrhosis type: unspecified hepatic cirrhosis Ascites presence: with ascites Qualified Code(s): K74.60 - Unspecified cirrhosis of liver Hypotension Qualifiers: Hypotension type: unspecified hypotension type Qualified Code(s): I95.9 - Hypotension, unspecified - Discharge Information Referrals: Oliverio Dawson MD [Primary Care Provider] - Forms: ED Department Discharge - My Orders Last 24 Hours: My Active Orders 07/06/17 00:14 EKG 12 Lead [EKG Documentation Completion] [RC] STAT Oxygen Therapy [RC] ASDIRECTED Chest 1V Frontal [CR] Stat Peripheral IV Insertion Adult [OM.PC] Stat 07/06/17 00:15 Peripheral IV Care [RC] . DIRECTED Sodium Chloride 0.9% [Saline Flush] 10 ml FLUSH ASDIRECTED PRN 07/06/17 03:30 Sodium Chloride 0.9% [Normal Saline] 1,000 ml IV ASDIRECTED - Assessment/Plan Last 24 Hours: My Active Orders 07/06/17 00:14 EKG 12 Lead [EKG Documentation Completion] [RC] STAT Oxygen Therapy [RC] ASDIRECTED Chest 1V Frontal [CR] Stat Peripheral IV Insertion Adult [OM.PC] Stat 07/06/17 00:15 Peripheral IV Care [RC] . DIRECTED Sodium Chloride 0.9% [Saline Flush] 10 ml FLUSH ASDIRECTED PRN 07/06/17 03:30 Sodium Chloride 0.9% [Normal Saline] 1,000 ml IV ASDIRECTED
[2017-07-06] MEDS ORDERED: HYDROmorphone 0.5 MG/0.5 ML Syringe IVPUSH ONE (03:23)
[2017-07-06] MEDS ORDERED: Sodium Chloride 0.9% 1,000 ML IV SCH (03:30)
--- NOTE | 2017-07-06 07:00 | CR ---
Chest: Portable view of the chest was obtained. Comparison: Previous chest x-ray of 05/17/[address] chest study of 07/04/17. Heart size is normal. Tortuous thoracic aorta is seen. Minimal parenchymal density is noted within the right lung within the upper lobe which is seen on recent chest CT either due to atelectasis, minimal infiltrate or fibrosis. Lungs otherwise are clear. Bony structures are grossly intact. Impression: 1. Minimal density within the right upper lung similar to prior chest CT with differential as described above. 2. Nothing acute is otherwise identified on portable chest x-ray. Diagnostic code #3
== END 2017-07-06 04:00 ==
LOC: JD.ED 23:26
DX: I26.99 Other pulmonary embolism without acute cor pulmonale (principal); K86.2 Cyst of pancreas; K86.1 Other chronic pancreatitis; N28.9 Disorder of kidney and ureter, unspecified; K74.60 Unspecified cirrhosis of liver; I95.9 Hypotension, unspecified; F17.210 Nicotine dependence, cigarettes, uncomplicated; I10 Essential (primary) hypertension; Z87.01 Personal history of pneumonia (recurrent); Z79.01 Long term (current) use of anticoagulants; Z79.899 Other long term (current) drug therapy
CPT/HCPCS: 36415; 71010; 80053; 82150; 83690; 85025; 85610; 93005; 96361; 96374; 96375; 99285; J1170; J2405; J7040; 99284

== ENCOUNTER 2017-10-07 15:44 | Inpatient (IN) | payer MEDICAID, OTHER ==
[2017-10-07] MEDS ORDERED: Sodium Chloride 0.9% 10 ML Syringe FLUSH PRN (16:12)
[2017-10-07] MEDS ORDERED: HYDROmorphone 1 MG/ML Syringe IVPUSH ONE (16:13)
[2017-10-07] MEDS ORDERED: Iopamidol 612 MG/ML 100 ML Bottle IVPUSH ONE (16:39)
[2017-10-07] MEDS ORDERED: Sodium Chloride 0.9% 10 ML Syringe FLUSH ONE (16:39)
[2017-10-07] MEDS ORDERED: Diatrizoate Meglumine/Diatrizoate Sodium 37% 120 ML Bottle PO ONE (16:39)
--- NOTE | 2017-10-07 16:59 | EDM.PDOC ---
ED HPI GENERAL MEDICAL PROBLEM - General Chief Complaint: Abdominal Pain Stated Complaint: ABD/FLANK PAIN Time Seen by Provider: 10/07/17 15:48 Source of Information: Reports: Patient, Provider History Limitations: Reports: No Limitations - History of Present Illness INITIAL COMMENTS - FREE TEXT/NARRATIVE: The patient presents with right lower abdominal pain and nausea. He has a history of pancreatitis from drinking. He was admitted to [facility] in [place] for about 2 months for it. He needed a G tube. He developed a DVT and PE and he has a endy filter in. He does not drink any more and he is doing good and is getting his G tube out on October 13. He has had no appetite, nausea and right lower abdominal pain for about 1 week. He went to see his doctor Dr Henriquez and he did some labs and his WBC was 16,000. His lipase was 2800. He sent him over for a CT and further management. He denies fever, chills, cough, chest pain or shortness of breath. Onset: Gradual Duration: Week(s): (1) Location: Reports: Abdomen Quality: Reports: Sharp Severity: Moderate Improves with: Reports: None Worsens with: Reports: None Associated Symptoms: Reports: Nausea/Vomiting. Denies: Chest Pain, Cough, Fever /Chills, Shortness of Breath Right Abdominal Pain Score (Numeric/FACES): 4 - Related Data Allergies Allergy/AdvReac Type Severity Reaction Status Date / Time No Known Allergies Allergy Verified 10/07/17 15:54 Home Meds: Home Meds Cyanocobalamin (Vitamin B-12) [B-12] 6,000 mcg PO DAILY 05/31/17 [History] Ferrous Sulfate 325 mg PO DAILY 05/31/17 [History] Multivitamin [Multivitamins] 1 tab PO DAILY 05/31/17 [History] Sildenafil Citrate [Sildenafil] 20 mg PO ASDIRECTED 05/31/17 [History] Enoxaparin Sodium [Lovenox] 65 mg SQ Q12H #9 ml 07/04/17 [Rx] Furosemide [Lasix] 40 mg PO DAILY #30 tablet 07/04/17 [Rx] Sennosides/Docusate Sodium [Senna-Docusate Sodium] 2 tab PO DAILY 07/04/17 [ History] Past Medical History HEENT History: Reports: Impaired Vision Other HEENT History: Wears glasses Cardiovascular History: Reports: Blood Clots/VTE/DVT, Hypertension Respiratory History: Reports: PE Other Respiratory History: pneumonia Gastrointestinal History: Reports: Pancreatitis - Past Surgical History GI Surgical History: Reports: Appendectomy Social & Family History - Tobacco Use Smoking Status *Q: Current Every Day Smoker Years of Tobacco use: 30 Packs/Tins Daily: 1 - Caffeine Use Caffeine Use: Reports: Coffee, Soda - Recreational Drug Use Recreational Drug Use: No - Living Situation & Occupation Living situation: Reports: Single (Self-employed) Occupation: Employed ED ROS GENERAL - Review of Systems Review Of Systems: See Below Constitutional: Reports: No Symptoms HEENT: Reports: No Symptoms Respiratory: Reports: No Symptoms Cardiovascular: Reports: No Symptoms Endocrine: Reports: No Symptoms GI/Abdominal: Reports: Abdominal Pain, Nausea. Denies: Diarrhea, Vomiting : Reports: No Symptoms Musculoskeletal: Reports: No Symptoms Skin: Reports: No Symptoms ED EXAM, GI/ABD - Physical Exam Exam: See Below Exam Limited By: No Limitations General Appearance: Alert, No Apparent Distress Ears: Normal External Exam Nose: Normal Inspection Head: Atraumatic, Normocephalic Neck: Normal Inspection Respiratory/Chest: No Respiratory Distress, Lungs Clear, Normal Breath Sounds Cardiovascular: Regular Rate, Rhythm, No Edema, No Murmur GI/Abdominal Exam: Soft, No Organomegaly, No Mass, Tender (Moderate pain upon palpation to the right lower abdomen.) Course - Vital Signs Last Recorded V/S: Last Vital Signs Temp 96.8 F 10/07/17 15:55 Pulse 69 10/07/17 15:55 Resp 16 10/07/17 15:55 BP 183/110 H 10/07/17 15:55 Pulse Ox 98 10/07/17 15:55 - Orders/Labs/Meds Orders: Active Orders 24 hr Category Date Time Status Peripheral IV Care [RC] . DIRECTED Care 10/07/17 16:12 Active DRUG SCREEN, URINE [URCHEM] Stat Lab 10/07/17 19:08 Uncollected ETOH [ETHANOL BLOOD MEDICAL] [CHEM] Stat Lab 10/07/17 19:08 Ordered Sodium Chloride 0.9% [Saline Flush] Med 10/07/17 16:12 Active 10 ml FLUSH ASDIRECTED PRN Peripheral IV Insertion Adult [OM.PC] Routine Oth 10/07/17 16:12 Ordered Medication Orders Sodium Chloride (Saline Flush) 10 ml FLUSH ASDIRECTED PRN PRN Reason: Keep Vein Open Last Admin: 10/07/17 16:26 Dose: 10 ml Meds: Medications Generic Name Dose Route Start Last Admin Trade Name [place] PRN Reason Stop Dose Admin Sodium Chloride 10 ml 10/07/17 16:12 10/07/17 16:26 Saline Flush FLUSH 10 ml ASDIRECTED PRN Administration Keep Vein Open Discontinued Medications Generic Name Dose Route Start Last Admin Trade Name Freq PRN Reason Stop Dose Admin Diatrizoate Meglum/Diatrizoate Sod 90 ml 10/07/17 16:39 10/07/17 17:13 Gastrografin 37% PO 10/07/17 16:40 90 ml ONETIME ONE Administration Hydromorphone HCl 1 mg 10/07/17 16:13 10/07/17 16:25 Dilaudid IVPUSH 10/07/17 16:14 1 mg ONETIME ONE Administration Iopamidol 100 ml 10/07/17 16:39 10/07/17 17:13 Isovue-300 (61%) IVPUSH 10/07/17 16:40 100 ml ONETIME ONE Administration Sodium Chloride 10 ml 10/07/17 16:39 10/07/17 17:13 Saline Flush FLUSH 10/07/17 16:40 10 ml ONETIME ONE Administration - Re-Assessments/Exams Free Text/Narrative Re-Assessment/Exam: 10/07/17 16:58 I ordered an IV NS 1L bolus, dilaudid 1mg IV and a CT of his abdomen and pelvis with IV and oral contrast. 10/07/17 17:54 His WBC was 16.25. His glucose was elevated at 142. His amylase was elevated at 370. His lipase was elevated at 2804. His CT shows resolution of low density abnormality within the periphery of the right lobe of the liver as well as resolution of the low density abnormality within the pancreas. Incidental gastrostomy tube noted. Small amount of free fluid off the inferior liver and within the dependent portion of the pelvis. This is nonspecific. Other incidental findings. No acue abnormality is appreciated. 10/07/17 19:[address] Gerber and she agreed to the admission. She wanted an alcohol and UDS done. I will add those. Departure - Departure Time of Disposition: 19:10 Disposition: Admitted As Inpatient 67 Condition: Fair Clinical Impression: Pancreatitis Qualifiers: Chronicity: chronic Pancreatitis type: unspecified pancreatitis type Qualified Code(s): K86.1 - Other chronic pancreatitis - Discharge Information Referrals: Neil Urias [Primary Care Provider] - Forms: ED Department Discharge - My Orders Last 24 Hours: My Active Orders 10/07/17 16:12 Peripheral IV Care [RC] . DIRECTED Sodium Chloride 0.9% [Saline Flush] 10 ml FLUSH ASDIRECTED PRN Peripheral IV Insertion Adult [OM.PC] Routine 10/07/17 19:08 DRUG SCREEN, URINE [URCHEM] Stat ETOH [ETHANOL BLOOD MEDICAL] [CHEM] Stat - Assessment/Plan Last 24 Hours: My Active Orders 10/07/17 16:12 Peripheral IV Care [RC] . DIRECTED Sodium Chloride 0.9% [Saline Flush] 10 ml FLUSH ASDIRECTED PRN Peripheral IV Insertion Adult [OM.PC] Routine 10/07/17 19:08 DRUG SCREEN, URINE [URCHEM] Stat ETOH [ETHANOL BLOOD MEDICAL] [CHEM] Stat
--- NOTE | 2017-10-07 17:49 | CT ---
CT abdomen and pelvis Technique: Multiple axial sections were obtained from above the dome of the diaphragm inferiorly through the pubic symphysis. Intravenous and oral contrast was utilized. Delayed images were obtained through the bladder. Comparison: Prior CT abdomen and pelvis exam of 08/16/17. Findings: Small portion of the visualized lung bases are clear. Previous study showed a low-density lesion along the periphery of the right lobe of the liver containing air which is no longer seen. Gastrostomy tube is noted. Gallbladder is slightly dilated. No focal abnormality is seen within the liver. Spleen appears within normal limits. Adrenal glands show no abnormality. Inferior vena cava filter is noted. Kidneys show symmetric contrast enhancement without hydronephrosis or mass. Pancreas appears within normal limits. Previous low density area seen within the pancreas on prior study is not identified currently. No significant inflammatory change around the pancreas is seen. Aorta and iliac vessels shows atherosclerotic change without aneurysmal dilatation. No retroperitoneal adenopathy is seen. Small amount of fluid seen off the inferior tip of the liver as well as within the dependent portion of the pelvis. No pelvic mass or adenopathy is seen. No inflammatory change is seen. Delayed images shows contrast within the bladder. Appendix is not visualized with surgical material seen near the cecum presumably from prior appendectomy. No bowel dilatation is seen. Bone window settings were reviewed which appear within normal limits for the patient's age. Impression: 1. Resolution of low density abnormality within the periphery of the right lobe of the liver as well as resolution of the low density abnormality within the pancreas. 2. Incidental gastrostomy tube noted. 3. Small amount of free fluid off the inferior liver and within the dependent portion of the pelvis. This is nonspecific. 3. Other incidental findings. No acute abnormality is appreciated. Diagnostic code #2
--- NOTE | 2017-10-07 20:01 | PCM.HP ---
H&P History of Present Illness - General Date of Service: 10/07/17 Admit Problem/Dx: Admission Diagnosis/Problem Admission Diagnosis/Problem Pancreatitis Source of Information: Patient, Provider History Limitations: Reports: No Limitations - History of Present Illness Initial Comments - Free Text/Narative: 57 year old male with PMH of pancreatitis presented to his PCP with a complaint of abdominal pain and associated nausea. Lab values are not available but the ED reports a lipase of 2800 drawn on the day of admission by his PCP. Additionally his WBCs are 16K, CXR or UA are not available. He is a former drinker who is to have his G tube removed on October 13. The patient was sent to the ED for admission for pancreatitis. A CT of abdomen/pelvis was performed without acute abnormalities. Onset of Symptoms: Reports: Gradual Duration of Symptoms: Reports: Week(s):, Getting Worse Location: Reports: Abdomen Quality: Reports: Sharp Severity: Moderate Improves with: Reports: Medication Worsens with: Reports: None Associated Symptoms: Reports: Loss of Appetite, Nausea/Vomiting Right Abdominal Pain Score (Numeric/FACES): 4 - Related Data Allergies/Adverse Reactions: Allergies Allergy/AdvReac Type Severity Reaction Status Date / Time No Known Allergies Allergy Verified 10/07/17 20:05 Home Medications: Home Meds Cyanocobalamin (Vitamin B-12) [B-12] 6,000 mcg PO DAILY 05/31/17 [History] Ferrous Sulfate 325 mg PO DAILY 05/31/17 [History] Multivitamin [Multivitamins] 1 tab PO DAILY 05/31/17 [History] Sildenafil Citrate [Sildenafil] 20 mg PO ASDIRECTED PRN 05/31/17 [History] Furosemide [Lasix] 40 mg PO DAILY #30 tablet 07/04/17 [Rx] Apixaban [Eliquis] 5 mg PO BID 10/07/17 [History] Lipase/Protease/Amylase [Zenpep DR 20,000 Unit] 1 each PO TID 10/07/17 [History] Omeprazole Magnesium [Prilosec Otc] 20 mg PO DAILY 10/07/17 [History] Potassium Chloride [Klor-Con M20] 20 meq PO DAILY 10/07/17 [History] Past Medical History HEENT History: Reports: Impaired Vision Other HEENT History: Wears glasses Cardiovascular History: Reports: Blood Clots/VTE/DVT, Hypertension Respiratory History: Reports: PE Other Respiratory History: pneumonia Gastrointestinal History: Reports: Pancreatitis - Past Surgical History GI Surgical History: Reports: Appendectomy Social & Family History - Tobacco Use Smoking Status *Q: Current Every Day Smoker Years of Tobacco use: 30 Packs/Tins Daily: 1 - Caffeine Use Caffeine Use: Reports: Coffee, Soda - Recreational Drug Use Recreational Drug Use: No - Living Situation & Occupation Living situation: Reports: Single (Self-employed) Occupation: Employed H&P Review of Systems - Review of Systems: Review Of Systems: See Below General: Reports: No Symptoms HEENT: Reports: No Symptoms Pulmonary: Reports: No Symptoms Cardiovascular: Reports: No Symptoms Gastrointestinal: Reports: Abdominal Pain, Decreased Appetite, Nausea Genitourinary: Reports: No Symptoms Musculoskeletal: Reports: No Symptoms Skin: Reports: No Symptoms Psychiatric: Reports: No Symptoms Neurological: Reports: No Symptoms Hematologic/Lymphatic: Reports: No Symptoms Exam - Exam Exam: See Below - Vital Signs Vital Signs: Last Vital Signs Temp 36.0 C 10/07/17 15:55 Pulse 69 10/07/17 15:55 Resp 16 10/07/17 15:55 BP 183/110 H 10/07/17 15:55 Pulse Ox 98 10/07/17 15:55 Weight: 62.596 kg - Exam Quality Assessment: DVT Prophylaxis General: Alert, Oriented, Cooperative HEENT: EOMI, Nares Patent, Normal Nasal Septum, Pupils Equal, Pupils Reactive, PERRLA Neck: Trachea Midline Lungs: Normal Respiratory Effort, Decreased Breath Sounds Cardiovascular: Regular Rate, Regular Rhythm GI/Abdominal Exam: Normal Bowel Sounds, Soft, No Organomegaly, No Distention, Tender (Male) Exam: Deferred Rectal (Males) Exam: Deferred Back Exam: Normal Inspection Extremities: Normal Inspection Skin: Warm Neurological: Cranial Nerves Intact Neuro Extensive - Mental Status: Alert, Oriented x3, Normal Mood/Affect, Normal Cognition, Memory Intact *Q Meaningful Use (ADM) - VTE *Q VTE Criteria *Q: - Stroke *Q Stroke Criteria *Q: - AMI *Q AMI Criteria *Q: - Problem List (1) Pancreatitis SNOMED Code(s): 53636774 ICD Code: K85.90 - ACUTE PANCREATITIS WITHOUT NECROSIS OR INFECTION, UNSP Status: Acute Current Visit: Yes Qualifiers: Chronicity: chronic Pancreatitis type: unspecified pancreatitis type Qualified Code(s): K86.1 - Other chronic pancreatitis (2) Elevated amylase SNOMED Code(s): 316166921 Status: Acute Current Visit: No (3) Left leg DVT SNOMED Code(s): 402990352 ICD Code: I82.402 - ACUTE EMBOLISM AND THOMBOS UNSP DEEP VEINS OF L LOW EXTREM Status: Acute Current Visit: No Qualifiers: Affected thrombotic vein of extremity: unspecified lower extremity proximal vein Chronicity: acute Qualified Code(s): I82.4Y2 - Acute embolism and thrombosis of unspecified deep veins of left proximal lower extremity (4) Pulmonary embolism, bilateral SNOMED Code(s): 52538548 ICD Code: I26.99 - OTHER PULMONARY EMBOLISM WITHOUT ACUTE COR PULMONALE Status: Acute Current Visit: No (5) Renal insufficiency SNOMED Code(s): 059695430 ICD Code: N28.9 - DISORDER OF KIDNEY AND URETER, UNSPECIFIED Status: Acute Current Visit: No Problem List Initiated/Reviewed/Updated: Yes Orders Last 24hrs: Active Orders 24 hr Category Date Time Status Patient Status [ADT] Routine ADT 10/07/17 19:57 Active Medication Orders Sodium Chloride (Saline Flush) 10 ml FLUSH ASDIRECTED PRN PRN Reason: Keep Vein Open Last Admin: 10/07/17 16:26 Dose: 10 ml Assessment/Plan Comment:: Impression: Acute on chronic pancreatitis History of Gastrostomy tube; 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 Bilateral PE/DVT on Eliquis; s/p Anuradha filter Leukocytosis Chronic Former ETOH Tobacco dependence Plan: IVF Analgesics Empiric ATB CXR UA DVT/GI prophylaxis SW consults
[2017-10-07] MEDS ORDERED: LORazepam 2 MG/ML MDV IVPUSH PRN (20:17)
[2017-10-07] MEDS: Apixaban 5 MG Tab PO SCH (20:41)
[2017-10-07] MEDS ORDERED: Levofloxacin/Dextrose 5%-Water 750 MG in Premix Bag 1 BAG IV SCH (21:00)
[2017-10-07] MEDS ORDERED: FLU Vacc QS 2017-18 (6mos UP)/PF 60 MCG/0.5 ML Syringe IM SCH (21:30)
[2017-10-07] MEDS: HYDROmorphone 0.5 MG/0.5 ML Syringe IVPUSH PRN (22:30)
[2017-10-07] MEDS: metroNIDAZOLE/Normal Saline 500 MG in Premix Bag 1 BAG IV SCH (22:35)
[2017-10-08] MEDS: HYDROmorphone 0.5 MG/0.5 ML Syringe IVPUSH PRN ×5 (02:33→22:42)
[2017-10-08] MEDS ORDERED: Ondansetron 4 MG/2 ML SDV IVPUSH PRN ×2 (05:16→08:08)
[2017-10-08] MEDS: metroNIDAZOLE/Normal Saline 500 MG in Premix Bag 1 BAG IV SCH (06:33)
[2017-10-08] MEDS ORDERED: Promethazine 12.5 MG in Sodium Chloride 0.9% 50 ML IV PRN (08:04)
[2017-10-08] MEDS ORDERED: Scopolamine 1.5 MG Transdermal Patch TRDERM SCH (08:30)
[2017-10-08] MEDS: Nicotine 21 MG/24 Hr Patch TRDERM SCH (08:48)
[2017-10-08] MEDS: Apixaban 5 MG Tab PO SCH ×2 (08:49→20:48)
[2017-10-08] MEDS: Potassium Chloride 20 MEQ Tab.ER PO SCH (08:50)
--- NOTE | 2017-10-08 09:03 | CR ---
Chest: Two views of the chest were obtained. Comparison: Prior chest x-ray of 07/06/17. Heart size is normal. Mild tortuosity of the thoracic aorta is seen. Lungs are clear. Old healed right-sided rib fractures are noted. Mild scoliosis is seen. Gastrostomy and catheter noted within the left upper abdomen. Impression: 1. Incidental findings. Nothing acute is identified on two-view chest x-ray. Diagnostic code #2
--- NOTE | 2017-10-08 09:10 | PCM.PN ---
- General Info Date of Service: 10/08/17 Admission Dx/Problem (Free Text): Admission Diagnosis/Problem Admission Diagnosis/Problem Pancreatitis Subjective Update: Follow Up Functional Status: Reports: Pain Controlled, Urinating. Denies: Tolerating Diet , New Symptoms - Review of Systems General: Denies: Fever, Chills HEENT: Reports: No Symptoms Pulmonary: Denies: Shortness of Breath Cardiovascular: Denies: Chest Pain Gastrointestinal: Reports: Abdominal Pain, Flatus, Nausea. Denies: Vomiting Genitourinary: Reports: No Symptoms Musculoskeletal: Reports: No Symptoms Skin: Denies: Cyanosis, Jaundice, Pruritis Neurological: Denies: Confusion, Difficulty Walking, Weakness, Gait Disturbance Psychiatric: Denies: Depression, Anxiety, Agitation, Hallucinations Systems Review Comment:: No significant overnight issues. He is hungry but nauseous. His pain is controlled. He has no other acute issues. His lipase this morning improved to 1202 from 2804. He remains afebrile. His WBC is now down to 12.42. - Patient Data Vitals - Most Recent: Last Vital Signs Temp 36.4 C 10/07/17 20:01 Pulse 78 10/07/17 20:01 Resp 16 10/07/17 20:01 BP 127/83 10/07/17 20:01 Pulse Ox 94 L 10/07/17 20:01 Weight - Most Recent: 60.419 kg I&O - Last 24 Hours: Intake & Output 10/07/17 10/08/17 10/08/17 22:59 06:59 14:59 Intake Total 1312 Balance 1312 Lab Results Last 24 Hours: Laboratory Results - last 24 hr 10/07/17 10/07/17 10/08/17 Range/Units 20:15 20:15 05:55 WBC 12.42 H (4.23-9.07) K/mm3 RBC 4.53 L (4.63-6.08) M/mm3 Hgb 13.8 (13.7-17.5) gm/L Hct 41.1 (40.1-51.0) % MCV 90.7 (79.0-92.2) fl MCH 30.5 (25.7-32.2) pg MCHC 33.6 (32.2-35.5) g/dl RDW Std Deviation 44.7 H (35.1-43.9) fL Plt Count 268 (163-337) K/mm3 MPV 9.8 (9.4-12.3) fl Neut % (Auto) 75.3 H (34.0-67.9) % Lymph % (Auto) 12.2 L (21.8-53.1) % [place] % (Auto) 9.7 (5.3-12.2) % Eos % (Auto) 2.4 (0.8-7.0) Baso % (Auto) 0.2 (0.1-1.2) % Neut # (Auto) 9.34 H (1.78-5.38) K/mm3 Lymph # (Auto) 1.52 (1.32-3.57) K/mm3 [place] # (Auto) 1.21 H (0.30-0.82) K/mm3 Eos # (Auto) 0.30 (0.04-0.54) K/mm3 Baso # (Auto) 0.03 (0.01-0.08) K/mm3 Sodium (136-145) mEq/L Potassium (3.5-5.1) mEq/L Chloride (98-107) mEq/L Carbon Dioxide (21-32) mEq/L Anion Gap (5-15) BUN (7-18) mg/dL Creatinine (0.7-1.3) mg/dL Est Cr Clr Drug Dosing mL/min Estimated GFR (MDRD) (>60) mL/min BUN/Creatinine Ratio (14-18) Glucose (74-106) mg/dL Lactic Acid (0.4-2.0) mmol/L Calcium (8.5-10.1) mg/dL Total Bilirubin (0.2-1.0) mg/dL AST (15-37) U/L ALT (16-63) U/L Alkaline Phosphatase (46-116) U/L C-Reactive Protein (<1.0) mg/dL Total Protein (6.4-8.2) g/dl Albumin (3.4-5.0) g/dl Globulin gm/dL Albumin/Globulin Ratio (1-2) Lipase (73-393) U/L Urine Color Yellow (Yellow) Urine Appearance Clear (Clear) Urine pH 6.0 (5.0-8.0) Ur Specific [place] 1.015 (1.005-1.030) Urine Protein Negative (Negative) Urine Glucose (UA) Negative (Negative) Urine Ketones Negative (Negative) Urine Occult Blood 2+ H (Negative) Urine Nitrite Negative (Negative) Urine Bilirubin Negative (Negative) Urine Urobilinogen 0.2 (0.2-1.0) Ur Leukocyte Esterase Negative (Negative) Urine RBC 0-5 (0-5) /hpf Urine WBC 0-5 (0-5) /hpf Ur Epithelial Cells 0-5 (0-5) /hpf Urine Bacteria Rare (FEW) /hpf Urine Mucus Not seen (FEW) /hpf Urine Opiates Screen Presumptive positive H (NEGATIVE) Ur Buprenorphine Scrn Negative (NEGATIVE) Ur Oxycodone Screen Negative (NEGATIVE) Urine Methadone Screen Negative (NEGATIVE) Ur Propoxyphene Screen Negative (NEGATIVE) Ur Barbiturates Screen Negative (NEGATIVE) Ur Tricyclics Screen Negative (NEGATIVE) Ur Phencyclidine Scrn Negative (NEGATIVE) Ur Amphetamine Screen Negative (NEGATIVE) U Methamphetamines Scrn Negative (NEGATIVE) U Benzodiazepines Scrn Negative (NEGATIVE) U Cocaine Metab Screen Negative (NEGATIVE) U Marijuana (THC) Screen Presumptive positive H (NEGATIVE) 10/08/17 10/08/17 Range/Units 05:55 05:55 WBC (4.23-9.07) K/mm3 RBC (4.63-6.08) M/mm3 Hgb (13.7-17.5) gm/L Hct (40.1-51.0) % MCV (79.0-92.2) fl MCH (25.7-32.2) pg MCHC (32.2-35.5) g/dl RDW Std Deviation (35.1-43.9) fL Plt Count (163-337) K/mm3 MPV (9.4-12.3) fl Neut % (Auto) (34.0-67.9) % Lymph % (Auto) (21.8-53.1) % [place] % (Auto) (5.3-12.2) % Eos % (Auto) (0.8-7.0) Baso % (Auto) (0.1-1.2) % Neut # (Auto) (1.78-5.38) K/mm3 Lymph # (Auto) (1.32-3.57) K/mm3 [place] # (Auto) (0.30-0.82) K/mm3 Eos # (Auto) (0.04-0.54) K/mm3 Baso # (Auto) (0.01-0.08) K/mm3 Sodium 138 (136-145) mEq/L Potassium 3.5 (3.5-5.1) mEq/L Chloride 100 (98-107) mEq/L Carbon Dioxide 29 (21-32) mEq/L Anion Gap 12.5 (5-15) BUN 12 (7-18) mg/dL Creatinine 1.0 (0.7-1.3) mg/dL Est Cr Clr Drug Dosing 70.49 mL/min Estimated GFR (MDRD) > 60 (>60) mL/min BUN/Creatinine Ratio 12.0 L (14-18) Glucose 102 (74-106) mg/dL Lactic Acid 0.8 (0.4-2.0) mmol/L Calcium 9.1 (8.5-10.1) mg/dL Total Bilirubin 0.7 (0.2-1.0) mg/dL AST 12 L (15-37) U/L ALT 17 (16-63) U/L Alkaline Phosphatase 69 (46-116) U/L C-Reactive Protein 1.8 H* (<1.0) mg/dL Total Protein 6.5 (6.4-8.2) g/dl Albumin 3.1 L (3.4-5.0) g/dl Globulin 3.4 gm/dL Albumin/Globulin Ratio 0.9 L (1-2) Lipase 1202 H (73-393) U/L Urine Color (Yellow) Urine Appearance (Clear) Urine pH (5.0-8.0) Ur Specific [place] (1.005-1.030) Urine Protein (Negative) Urine Glucose (UA) (Negative) Urine Ketones (Negative) Urine Occult Blood (Negative) Urine Nitrite (Negative) Urine Bilirubin (Negative) Urine Urobilinogen (0.2-1.0) Ur Leukocyte Esterase (Negative) Urine RBC (0-5) /hpf Urine WBC (0-5) /hpf Ur Epithelial Cells (0-5) /hpf Urine Bacteria (FEW) /hpf Urine Mucus (FEW) /hpf Urine Opiates Screen (NEGATIVE) Ur Buprenorphine Scrn (NEGATIVE) Ur Oxycodone Screen (NEGATIVE) Urine Methadone Screen (NEGATIVE) Ur Propoxyphene Screen (NEGATIVE) Ur Barbiturates Screen (NEGATIVE) Ur Tricyclics Screen (NEGATIVE) Ur Phencyclidine Scrn (NEGATIVE) Ur Amphetamine Screen (NEGATIVE) U Methamphetamines Scrn (NEGATIVE) U Benzodiazepines Scrn (NEGATIVE) U Cocaine Metab Screen (NEGATIVE) U Marijuana (THC) Screen (NEGATIVE) Med Orders - Current: Current Medications Apixaban (Eliquis) 5 mg PO BID [facility] Last Admin: 10/08/17 08:49 Dose: 5 mg Hydromorphone HCl (Dilaudid) 0.5 mg IVPUSH Q2H PRN PRN Reason: Pain Last Admin: 10/08/17 08:48 Dose: 0.5 mg Levofloxacin/Dextrose 750 mg/ (Premix) 150 mls @ 100 mls/hr IV Q24H [facility] Last Admin: 10/07/17 20:41 Dose: 100 mls/hr Metronidazole 500 mg/ Premix 100 mls @ 100 mls/hr IV Q8H [facility] Last Admin: 10/08/17 06:33 Dose: 100 mls/hr Potassium Chloride/Sodium Chloride (1/2 Ns With 20 Meq Kcl) 1,000 mls @ 125 mls /hr IV ASDIRECTED [facility] Last Admin: 10/08/17 00:00 Dose: 125 mls/hr Promethazine HCl 12.5 mg/ (Sodium Chloride) 50.5 mls @ 100 mls/hr IV Q6H PRN PRN Reason: Nausea/Vomiting Last Admin: 10/08/17 08:50 Dose: 100 mls/hr Influenza Virus Vaccine (Flulaval Quad 0342-0420) 60 mcg IM .ONCE [facility] Lorazepam (Ativan) 1 mg IVPUSH BEDTIME PRN PRN Reason: Insomnia Miscellaneous Information (Remove Patch) 1 ea TRDERM DAILY [facility] Miscellaneous Information (Remove Patch) 1 ea TRDERM Q72H [facility] Nicotine (Habitrol) 21 mg TRDERM DAILY [facility] Last Admin: 10/08/17 08:48 Dose: 21 mg Ondansetron HCl (Zofran) 4 mg IVPUSH Q8H PRN PRN Reason: Nausea/Vomiting Potassium Chloride (Klor-Con M20) 20 meq PO DAILY [facility] Last Admin: 10/08/17 08:50 Dose: Not Given Scopolamine (Transderm-Scop) 1.5 mg TRDERM Q72H [facility] Last Admin: 10/08/17 08:49 Dose: 1.5 mg Sodium Chloride (Saline Flush) 10 ml FLUSH ASDIRECTED PRN PRN Reason: Keep Vein Open Last Admin: 10/07/17 16:26 Dose: 10 ml Discontinued Medications Diatrizoate Meglum/Diatrizoate Sod (Gastrografin 37%) 90 ml PO ONETIME ONE Stop: 10/07/17 16:40 Last Admin: 10/07/17 17:13 Dose: 90 ml Hydromorphone HCl (Dilaudid) 1 mg IVPUSH ONETIME ONE Stop: 10/07/17 16:14 Last Admin: 10/07/17 16:25 Dose: 1 mg Iopamidol (Isovue-300 (61%)) 100 ml IVPUSH ONETIME ONE Stop: 10/07/17 16:40 Last Admin: 10/07/17 17:13 Dose: 100 ml Ondansetron HCl (Zofran) 4 mg IVPUSH Q4H PRN PRN Reason: Nausea Last Admin: 10/08/17 05:29 Dose: 4 mg Sodium Chloride (Saline Flush) 10 ml FLUSH ONETIME ONE Stop: 10/07/17 16:40 Last Admin: 10/07/17 17:13 Dose: 10 ml - Exam General: Alert, Oriented, Cooperative, No Acute Distress HEENT: Pupils Equal, Pupils Reactive, EOMI, Mucous Membr. Moist/[place] Neck: Supple, Trachea Midline, No JVD, No Thyromegaly Lungs: Clear to Auscultation, Normal Respiratory Effort Cardiovascular: Regular Rate, Regular Rhythm GI/Abdominal Exam: Normal Bowel Sounds, Soft, Non-Tender, No Organomegaly, No Distention, No Abnormal Bruit, No Mass (Male) Exam: Deferred Back Exam: Normal Inspection, Decreased Range of Motion Extremities: Normal Inspection, Normal Range of Motion, Non-Tender, Normal Capillary Refill, Limited Range of Motion Peripheral Pulses: 2+: Dorsalis Pedis (L), Dorsalis Pedis (R) Skin: Warm, Dry, Intact Neurological: No New Focal Deficit Psy/Mental Status: Alert, Normal Affect, Normal Mood - Problem List Review Problem List Initiated/Reviewed/Updated: Yes - Plan Plan:: Assessment/Plan: Acute: Pancreatitis - Acute on chronic - Has hx/o ETOH Abuse; DYLAN is zero - Etiology is unknown at this time - Currently on IV ATB with Levaquin and Flagyl; Will d/ since WBC and CRP are mildly elevated (CXR and UA both negative) - Supportive Care and Pain Management - NPO except ice chips since he is still symptomatic Nausea w/o Vomiting - 2/2 Above - PRN anti-emesis - Scopolamine Patch x 1 now - Ice chips only Leukocytosis, Improving - 2/2 above - WBC 16.25 ---> 12.42 - CRP is 1.8 - Continue to monitor Substance Abuse - Acute on Chronic - He admits to using Marijuana - UDS pos for Opiates and THC - He is also a former alcoholic - Counseled on substance abuse Chronic: History of Gastrostomy tube; 2 months [employer] WR[employer], Stable Bilateral PE/DVT on Eliquis; S/p Lapaz filter Tobacco dependence; Nicotine Patch Former Alcoholic Hx/o Substance Abuse Plan: He is clinically stable Continue routine AM Labs CXR/UA: negative DVT/GI prophylaxis: On Eliquis and IVC Filter/H2B SW/CM for d/c planning Additional orders as above Code status: 1
[2017-10-08] MEDS: Sodium Chloride 0.45% with KCl 1,000 ML IV SCH ×3 (13:05→20:49)
[2017-10-08] MEDS: Famotidine 20 MG/2 ML SDV IVPUSH SCH ×2 (14:38→20:48)
[2017-10-09] MEDS: Sodium Chloride 0.45% with KCl 1,000 ML IV SCH (04:29)
[2017-10-09] MEDS: HYDROmorphone 0.5 MG/0.5 ML Syringe IVPUSH PRN ×2 (04:29→07:00)
--- NOTE | 2017-10-09 07:42 | PCM.PN ---
- General Info Date of Service: 10/09/17 Admission Dx/Problem (Free Text): Admission Diagnosis/Problem Admission Diagnosis/Problem Pancreatitis Subjective Update: Follow Up Functional Status: Reports: Ambulating, Urinating. Denies: Pain Controlled, New Symptoms - Review of Systems General: Denies: Fever, Chills HEENT: Reports: No Symptoms Pulmonary: Denies: Shortness of Breath Cardiovascular: Denies: Chest Pain Gastrointestinal: Reports: Abdominal Pain, Flatus. Denies: Decreased Appetite, Diarrhea, Difficulty Swallowing, Nausea, Vomiting Genitourinary: Reports: No Symptoms Musculoskeletal: Reports: No Symptoms Skin: Denies: Cyanosis, Jaundice, Pallor, Diaphoresis Neurological: Denies: Confusion, Difficulty Walking, Weakness, Gait Disturbance Psychiatric: Reports: Mood Lability. Denies: Depression, Anxiety, Agitation, Suicidal Ideation Systems Review Comment:: No significant overnight or acute issues. Pain still not quite controlled. He slept fairly good. He is no longer nauseous. He is afebrile and WBC continues to trend down. His lipase slightly went up this morning at 1232. - Patient Data Vitals - Most Recent: Last Vital Signs Temp 36.2 C 10/09/17 04:28 Pulse 68 10/09/17 04:28 Resp 14 10/09/17 04:28 BP 114/82 10/09/17 04:28 Pulse Ox 95 10/09/17 04:28 Weight - Most Recent: 61.28 kg I&O - Last 24 Hours: Intake & Output 10/08/17 10/09/17 10/09/17 22:59 06:59 14:59 Intake Total 650 1452 Balance 650 1452 Lab Results Last 24 Hours: Laboratory Results - last 24 hr 10/08/17 10/08/17 10/09/17 Range/Units 05:55 05:55 05:51 WBC 10.20 H (4.23-9.07) K/mm3 RBC 4.46 L (4.63-6.08) M/mm3 Hgb 13.5 L (13.7-17.5) gm/L Hct 40.6 (40.1-51.0) % MCV 91.0 (79.0-92.2) fl MCH 30.3 (25.7-32.2) pg MCHC 33.3 (32.2-35.5) g/dl RDW Std Deviation 44.2 H (35.1-43.9) fL Plt Count 261 (163-337) K/mm3 MPV 10.4 (9.4-12.3) fl Neut % (Auto) 79.5 H (34.0-67.9) % Lymph % (Auto) 9.6 L (21.8-53.1) % [place] % (Auto) 8.6 (5.3-12.2) % Eos % (Auto) 1.5 (0.8-7.0) Baso % (Auto) 0.6 (0.1-1.2) % Neut # (Auto) 8.11 H (1.78-5.38) K/mm3 Lymph # (Auto) 0.98 L (1.32-3.57) K/mm3 [place] # (Auto) 0.88 H (0.30-0.82) K/mm3 Eos # (Auto) 0.15 (0.04-0.54) K/mm3 Baso # (Auto) 0.06 (0.01-0.08) K/mm3 Manual Slide Review Normal smear Sodium 138 (136-145) mEq/L Potassium 3.5 (3.5-5.1) mEq/L Chloride 100 (98-107) mEq/L Carbon Dioxide 29 (21-32) mEq/L Anion Gap 12.5 (5-15) BUN 12 (7-18) mg/dL Creatinine 1.0 (0.7-1.3) mg/dL Est Cr Clr Drug Dosing 70.49 mL/min Estimated GFR (MDRD) > 60 (>60) mL/min BUN/Creatinine Ratio 12.0 L (14-18) Glucose 102 (74-106) mg/dL Lactic Acid 0.8 (0.4-2.0) mmol/L Calcium 9.1 (8.5-10.1) mg/dL Total Bilirubin 0.7 (0.2-1.0) mg/dL AST 12 L (15-37) U/L ALT 17 (16-63) U/L Alkaline Phosphatase 69 (46-116) U/L C-Reactive Protein 1.8 H* (<1.0) mg/dL Total Protein 6.5 (6.4-8.2) g/dl Albumin 3.1 L (3.4-5.0) g/dl Globulin 3.4 gm/dL Albumin/Globulin Ratio 0.9 L (1-2) Lipase 1202 H (73-393) U/L 10/09/17 Range/Units 05:51 WBC (4.23-9.07) K/mm3 RBC (4.63-6.08) M/mm3 Hgb (13.7-17.5) gm/L Hct (40.1-51.0) % MCV (79.0-92.2) fl MCH (25.7-32.2) pg MCHC (32.2-35.5) g/dl RDW Std Deviation (35.1-43.9) fL Plt Count (163-337) K/mm3 MPV (9.4-12.3) fl Neut % (Auto) (34.0-67.9) % Lymph % (Auto) (21.8-53.1) % [place] % (Auto) (5.3-12.2) % Eos % (Auto) (0.8-7.0) Baso % (Auto) (0.1-1.2) % Neut # (Auto) (1.78-5.38) K/mm3 Lymph # (Auto) (1.32-3.57) K/mm3 [place] # (Auto) (0.30-0.82) K/mm3 Eos # (Auto) (0.04-0.54) K/mm3 Baso # (Auto) (0.01-0.08) K/mm3 Manual Slide Review Sodium (136-145) mEq/L Potassium (3.5-5.1) mEq/L Chloride (98-107) mEq/L Carbon Dioxide (21-32) mEq/L Anion Gap (5-15) BUN (7-18) mg/dL Creatinine (0.7-1.3) mg/dL Est Cr Clr Drug Dosing mL/min Estimated GFR (MDRD) (>60) mL/min BUN/Creatinine Ratio (14-18) Glucose (74-106) mg/dL Lactic Acid (0.4-2.0) mmol/L Calcium (8.5-10.1) mg/dL Total Bilirubin (0.2-1.0) mg/dL AST (15-37) U/L ALT (16-63) U/L Alkaline Phosphatase (46-116) U/L C-Reactive Protein 1.7 H* (<1.0) mg/dL Total Protein (6.4-8.2) g/dl Albumin (3.4-5.0) g/dl Globulin gm/dL Albumin/Globulin Ratio (1-2) Lipase 1236 H (73-393) U/L Med Orders - Current: Current Medications Apixaban (Eliquis) 5 mg PO BID [facility] Last Admin: 10/08/17 20:48 Dose: 5 mg Famotidine (Pepcid) 20 mg IVPUSH BID [facility] Last Admin: 10/08/17 20:48 Dose: 20 mg Hydromorphone HCl (Dilaudid) 0.5 mg IVPUSH Q2H PRN PRN Reason: Pain Last Admin: 10/09/17 07:00 Dose: 0.5 mg Potassium Chloride/Sodium Chloride (1/2 Ns With 20 Meq Kcl) 1,000 mls @ 125 mls /hr IV ASDIRECTED [facility] Last Admin: 10/09/17 04:29 Dose: 125 mls/hr Promethazine HCl 12.5 mg/ (Sodium Chloride) 50.5 mls @ 100 mls/hr IV Q6H PRN PRN Reason: Nausea/Vomiting Last Admin: 10/08/17 08:50 Dose: 100 mls/hr Influenza Virus Vaccine (Flulaval Quad [id number]) 60 mcg IM .ONCE [facility] Lorazepam (Ativan) 1 mg IVPUSH BEDTIME PRN PRN Reason: Insomnia Miscellaneous Information (Remove Patch) 1 ea TRDERM DAILY [facility] Miscellaneous Information (Remove Patch) 1 ea TRDERM Q72H [facility] Nicotine (Habitrol) 21 mg TRDERM DAILY [facility] Last Admin: 10/08/17 08:48 Dose: 21 mg Ondansetron HCl (Zofran) 4 mg IVPUSH Q8H PRN PRN Reason: Nausea/Vomiting Potassium Chloride (Klor-Con M20) 20 meq PO DAILY [facility] Last Admin: 10/08/17 08:50 Dose: Not Given Scopolamine (Transderm-Scop) 1.5 mg TRDERM Q72H [facility] Last Admin: 10/08/17 08:49 Dose: 1.5 mg Sodium Chloride (Saline Flush) 10 ml FLUSH ASDIRECTED PRN PRN Reason: Keep Vein Open Last Admin: 10/07/17 16:26 Dose: 10 ml Discontinued Medications Diatrizoate Meglum/Diatrizoate Sod (Gastrografin 37%) 90 ml PO ONETIME ONE Stop: 10/07/17 16:40 Last Admin: 10/07/17 17:13 Dose: 90 ml Hydromorphone HCl (Dilaudid) 1 mg IVPUSH ONETIME ONE Stop: 10/07/17 16:14 Last Admin: 10/07/17 16:25 Dose: 1 mg Levofloxacin/Dextrose 750 mg/ (Premix) 150 mls @ 100 mls/hr IV Q24H [facility] Last Admin: 10/07/17 20:41 Dose: 100 mls/hr Metronidazole 500 mg/ Premix 100 mls @ 100 mls/hr IV Q8H [facility] Last Admin: 10/08/17 06:33 Dose: 100 mls/hr Iopamidol (Isovue-300 (61%)) 100 ml IVPUSH ONETIME ONE Stop: 10/07/17 16:40 Last Admin: 10/07/17 17:13 Dose: 100 ml Ondansetron HCl (Zofran) 4 mg IVPUSH Q4H PRN PRN Reason: Nausea Last Admin: 10/08/17 05:29 Dose: 4 mg Sodium Chloride (Saline Flush) 10 ml FLUSH ONETIME ONE Stop: 10/07/17 16:40 Last Admin: 10/07/17 17:13 Dose: 10 ml - Exam General: Alert, Oriented, Cooperative, No Acute Distress HEENT: Pupils Equal, Pupils Reactive, EOMI, Mucous Membr. Moist/[place] Neck: Supple, Trachea Midline, No JVD Lungs: Clear to Auscultation, Normal Respiratory Effort Cardiovascular: Regular Rate, Regular Rhythm GI/Abdominal Exam: Normal Bowel Sounds, Soft, No Organomegaly, No Distention, No Abnormal Bruit, Tender (right lower quadrant ). No: Guarding, Rigid, Rebound (Male) Exam: Deferred Back Exam: Normal Inspection, Full Range of Motion Extremities: Normal Inspection, Normal Range of Motion, Non-Tender, No Pedal Edema, Normal Capillary Refill Peripheral Pulses: 2+: Dorsalis Pedis (L), Dorsalis Pedis (R) Skin: Warm, Dry, Intact Neurological: No New Focal Deficit Psy/Mental Status: Alert, Normal Affect, Normal Mood - Problem List Review Problem List Initiated/Reviewed/Updated: Yes - My Orders Last 24 Hours: My Active Orders 10/08/17 13:45 Famotidine [Pepcid] 20 mg IVPUSH BID 10/08/17 Dinner NPO [Nothing Per Oral Diet] [DIET] 10/09/17 05:11 CRP [C-REACTIVE PROTEIN] [CHEM] AM 10/10/17 05:11 CRP [C-REACTIVE PROTEIN] [CHEM] AM 10/11/17 05:11 CRP [C-REACTIVE PROTEIN] [CHEM] AM 10/12/17 05:11 CRP [C-REACTIVE PROTEIN] [CHEM] AM - Plan Plan:: Assessment/Plan: Acute: Pancreatitis - Acute on chronic - Has hx/o ETOH Abuse; DYLAN is zero - Etiology is unknown at this time - Lipase 1202 --> now 1236 - Received IV ATB with Levaquin and Flagyl; now discontinued - Supportive Care and Pain Management - He is clinically better this am - Starts clear liquid dietc Leukocytosis, Continue to improve - 2/2 above - WBC 16.25 ---> 12.42--> 10.20 - CRP is 1.8 --- now > 1.7 - Continue to monitor Substance Abuse - Acute on Chronic - He admits to using Marijuana - UDS pos for Opiates and THC - He is also a former alcoholic - Counseled on substance abuse Resolved: Nausea w/o Vomiting - 2/2 Above - PRN anti-emesis - Scopolamine Patch x 1 Chronic: History of Gastrostomy tube; 2 months [employer], Stable 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
[2017-10-09] MEDS: Nicotine 21 MG/24 Hr Patch TRDERM SCH (08:16)
[2017-10-09] MEDS: Potassium Chloride 20 MEQ Tab.ER PO SCH (08:17)
[2017-10-09] MEDS: Famotidine 20 MG/2 ML SDV IVPUSH SCH ×2 (08:17→20:51)
[2017-10-09] MEDS: Apixaban 5 MG Tab PO SCH ×2 (08:17→20:49)
[2017-10-09] MEDS: [UNRECOGNIZED DRUG - REMARK] TRDERM SCH (08:17)
[2017-10-09] MEDS: oxyCODONE ER 10 MG TAB.ER PO SCH ×2 (08:51→20:49)
[2017-10-09] MEDS: Acetaminophen/HYDROcodone 325-10 MG Tab PO PRN ×2 (15:23→20:50)
[2017-10-10] MEDS: Acetaminophen/HYDROcodone 325-10 MG Tab PO PRN ×2 (01:56→06:31)
[2017-10-10] MEDS: Apixaban 5 MG Tab PO SCH (08:14)
[2017-10-10] MEDS: oxyCODONE ER 10 MG TAB.ER PO SCH (08:15)
[2017-10-10] MEDS: Famotidine 20 MG/2 ML SDV IVPUSH SCH (08:15)
[2017-10-10] MEDS: Potassium Chloride 20 MEQ Tab.ER PO SCH (08:15)
[2017-10-10] MEDS: Nicotine 21 MG/24 Hr Patch TRDERM SCH (08:16)
[2017-10-10] MEDS: [UNRECOGNIZED DRUG - REMARK] TRDERM SCH (08:16)
--- NOTE | 2017-10-10 09:09 | PCM.DCSUM1 ---
Discharge Summary - Hospital Course Brief History: This is 57 year old male with PMH of chronic pancreatitis, liver disease, chronic etoh abuse, hx/o PE on eliquis, hx/o DVT S/p IVC Filter placement and on ELiquis, and HTN who initially presented to his PCP with a complaint of abdominal pain associated nausea and was found to have a lipase level of 2800. He was admitted for medical management of acute on chronic pancreatitis. - Discharge Data Discharge Date: 10/10/17 Discharge Disposition: Home, Self-Care 01 Condition: Good - Discharge Diagnosis/Problem(s) (1) Leukocytosis SNOMED Code(s): 643397434 ICD Code: D72.829 - ELEVATED WHITE BLOOD CELL COUNT, UNSPECIFIED Status: Acute Qualifiers: Leukocytosis type: unspecified Qualified Code(s): D72.829 - Elevated white blood cell count, unspecified (2) Substance abuse SNOMED Code(s): 11869207 ICD Code: F19.10 - OTHER PSYCHOACTIVE SUBSTANCE ABUSE, UNCOMPLICATED Status : Acute (3) Nausea without vomiting SNOMED Code(s): 815676173 ICD Code: R11.0 - NAUSEA Status: Resolved (4) Pancreatitis SNOMED Code(s): 40570171 ICD Code: K85.90 - ACUTE PANCREATITIS WITHOUT NECROSIS OR INFECTION, UNSP Status: Acute Qualifiers: Chronicity: chronic Pancreatitis type: unspecified pancreatitis type Qualified Code(s): K86.1 - Other chronic pancreatitis (5) Nicotine dependence SNOMED Code(s): 11275198 ICD Code: F17.200 - NICOTINE DEPENDENCE, UNSPECIFIED, UNCOMPLICATED Status : Chronic Qualifiers: Nicotine product type: cigarettes Substance use status: uncomplicated Qualified Code(s): F17.210 - Nicotine dependence, cigarettes, uncomplicated - Patient Summary/Data Operative Procedure(s) Performed: None Complications: None Consults: Consultations 10/07/17 20:16 Consult to [employer] [CONS] Routine Labs Pending at D/C: None Recommended Follow-up Testing/Procedures: None Planned Operative Procedure(s) after DC: None Hospital Course: Patient was primarily admitted for acute on chronic pancreatitis. He was medically managed until he improved clinically. His serial lipase were considerably elevated but his inflammatory markers were not. His hospital course was uncomplicated and the rest of his chronic medical illness remained stable during his admission. Once able to tolerate regular meal , he was immediately discharge home with a short course of pain medications. He was advised to keep his follow up appointment with his GI specialist in [place]. He was further advised to come back or seek immediate care should his symptoms persist or gets worse. Patient expressed understanding and in agreement with the plans as discussed above. All questions were answered. - Patient Instructions Diet: Usual Diet as Tolerated Activity: As Tolerated Driving: Do Not Drive Showering/Bathing: May Shower Notify Provider of: Fever, Increased Pain, Drainage, Nausea and/or Vomiting Other/Special Instructions: - Please take all medications as directed. - If you plan to smoke marijuana to control your symptom, avoid narcotics. - Keep your follow up appointment with Dr. Pelletier as scheduled. - Call or follow up with your PCP should you have any questions or concerns right after discharge - Discharge Plan Prescriptions/Med Rec: Docusate Sodium [Colace] 100 mg PO BID #14 capsule oxyCODONE 5 mg PO Q6H PRN #15 ml PRN Reason: Pain Home Medications: Home Meds Cyanocobalamin (Vitamin B-12) [B-12] 6,000 mcg PO DAILY 05/31/17 [History] Ferrous Sulfate 325 mg PO DAILY 05/31/17 [History] Multivitamin [Multivitamins] 1 tab PO DAILY 05/31/17 [History] Sildenafil Citrate [Sildenafil] 20 mg PO ASDIRECTED PRN 05/31/17 [History] Apixaban [Eliquis] 5 mg PO BID 10/07/17 [History] Lipase/Protease/Amylase [[place] MURPHY 20,000 Unit] 1 each PO TID 10/07/17 [History] Omeprazole Magnesium [Prilosec Otc] 20 mg PO DAILY 10/07/17 [History] Potassium Chloride [Klor-Con M20] 20 meq PO DAILY 10/07/17 [History] Docusate Sodium [Colace] 100 mg PO BID #14 capsule 10/10/17 [Rx] Furosemide [Lasix] 40 mg PO DAILY PRN #30 tablet 10/10/17 [Rx] oxyCODONE 5 mg PO Q6H PRN #15 ml 10/10/17 [Rx] Patient Handouts: Smoking Cessation, Tips for Success, [id number], Acute Pancreatitis, [id number] Referrals: Neil Urias [Primary Care Provider] - (Please call and schedule and follow up apt. with Dr. Henriquez in 5-7 days. ) - Discharge Summary/Plan Comment DC Time >30 min.: Yes (45 mins) Discharge Summary/Plan Comment: Discharge to Home - General Info Date of Service: 10/10/17 Admission Dx/Problem (Free Text: Admission Diagnosis/Problem Admission Diagnosis/Problem Pancreatitis Subjective Update: Follow Up Functional Status: Reports: Pain Controlled, Tolerating Diet, Ambulating, Urinating. Denies: New Symptoms - Review of Systems General: Denies: Fever, Weakness, Fatigue, Malaise, Chills HEENT: Reports: No Symptoms Pulmonary: Denies: Shortness of Breath Cardiovascular: Denies: Chest Pain Gastrointestinal: Reports: Abdominal Pain (better). Denies: Decreased Appetite , Diarrhea, Nausea, Vomiting Genitourinary: Reports: No Symptoms Musculoskeletal: Reports: No Symptoms Skin: Denies: Cyanosis, Jaundice, Pallor, Diaphoresis, Rash Neurological: Denies: Confusion, Seizure, Difficulty Walking, Weakness, Gait Disturbance Psychiatric: Denies: Depression, Anxiety, Agitation, Hallucinations Systems Review Comment: No overnight or acute issues. He slept and feels good this am. His pain is controlled. He tolerated regular meal last night. His WBC continues to improved and CRP remains low. He is afebrile. His lipase went up to 2885 this am but clinically, he looks really good and wants to go home. He has no new complaints. - Patient Data Vitals - Most Recent: Last Vital Signs Temp 36.7 C 10/10/17 02:00 Pulse 72 10/10/17 02:00 Resp 12 10/10/17 02:00 BP 134/87 10/10/17 02:00 Pulse Ox 96 10/10/17 02:00 Weight - Most Recent: 61.87 kg I&O - Last 24 hours: Intake & Output 10/09/17 10/10/17 10/10/17 22:59 06:59 14:59 Intake Total 1463 800 Balance 1463 800 Lab Results - Last 24 hrs: Laboratory Results - last 24 hr 10/10/17 10/10/17 Range/Units 05:44 05:44 WBC 9.78 H (4.23-9.07) K/mm3 RBC 4.60 L (4.63-6.08) M/mm3 Hgb 13.9 (13.7-17.5) gm/L Hct 41.8 (40.1-51.0) % MCV 90.9 (79.0-92.2) fl MCH 30.2 (25.7-32.2) pg MCHC 33.3 (32.2-35.5) g/dl RDW Std Deviation 45.2 H (35.1-43.9) fL Plt Count 259 (163-337) K/mm3 MPV 10.6 (9.4-12.3) fl Neut % (Auto) 60.5 (34.0-67.9) % Lymph % (Auto) 20.8 L (21.8-53.1) % [place] % (Auto) 13.8 H (5.3-12.2) % Eos % (Auto) 4.1 (0.8-7.0) Baso % (Auto) 0.7 (0.1-1.2) % Neut # (Auto) 5.92 H (1.78-5.38) K/mm3 Lymph # (Auto) 2.03 (1.32-3.57) K/mm3 [place] # (Auto) 1.35 H (0.30-0.82) K/mm3 Eos # (Auto) 0.40 (0.04-0.54) K/mm3 Baso # (Auto) 0.07 (0.01-0.08) K/mm3 C-Reactive Protein 1.6 H* (<1.0) mg/dL Lipase 2885 H (73-393) U/L Med Orders - Current: Current Medications Hydrocodone Bitart/Acetaminophen ([place] 325-10 Mg) 1 tab PO Q4H PRN PRN Reason: Pain Last Admin: 10/10/17 06:31 Dose: 1 tab Apixaban (Eliquis) 5 mg PO BID [facility] Last Admin: 10/10/17 08:14 Dose: 5 mg Famotidine (Pepcid) 20 mg IVPUSH BID [facility] Last Admin: 10/10/17 08:15 Dose: 20 mg Hydromorphone HCl (Dilaudid) 0.5 mg IVPUSH Q2H PRN PRN Reason: Pain Last Admin: 10/09/17 07:00 Dose: 0.5 mg Promethazine HCl 12.5 mg/ (Sodium Chloride) 50.5 mls @ 100 mls/hr IV Q6H PRN PRN Reason: Nausea/Vomiting Last Admin: 10/08/17 08:50 Dose: 100 mls/hr Influenza Virus Vaccine (Flulaval Quad [id number]) 60 mcg IM .ONCE [facility] Lorazepam (Ativan) 1 mg IVPUSH BEDTIME PRN PRN Reason: Insomnia Miscellaneous Information (Remove Patch) 1 ea TRDERM DAILY [facility] Last Admin: 10/10/17 08:16 Dose: 1 ea Miscellaneous Information (Remove Patch) 1 ea TRDERM Q72H [facility] Nicotine (Habitrol) 21 mg TRDERM DAILY [facility] Last Admin: 10/10/17 08:16 Dose: Not Given Ondansetron HCl (Zofran) 4 mg IVPUSH Q8H PRN PRN Reason: Nausea/Vomiting Oxycodone HCl (Oxycontin) 10 mg PO Q12HR [facility] Last Admin: 10/10/17 08:15 Dose: 10 mg Potassium Chloride (Klor-Con M20) 20 meq PO DAILY [facility] Last Admin: 10/10/17 08:15 Dose: 20 meq Scopolamine (Transderm-Scop) 1.5 mg TRDERM Q72H [facility] Last Admin: 10/08/17 08:49 Dose: 1.5 mg Sodium Chloride (Saline Flush) 10 ml FLUSH ASDIRECTED PRN PRN Reason: Keep Vein Open Last Admin: 10/07/17 16:26 Dose: 10 ml Discontinued Medications Diatrizoate Meglum/Diatrizoate Sod (Gastrografin 37%) 90 ml PO ONETIME ONE Stop: 10/07/17 16:40 Last Admin: 10/07/17 17:13 Dose: 90 ml Hydromorphone HCl (Dilaudid) 1 mg IVPUSH ONETIME ONE Stop: 10/07/17 16:14 Last Admin: 10/07/17 16:25 Dose: 1 mg Levofloxacin/Dextrose 750 mg/ (Premix) 150 mls @ 100 mls/hr IV Q24H [facility] Last Admin: 10/07/17 20:41 Dose: 100 mls/hr Metronidazole 500 mg/ Premix 100 mls @ 100 mls/hr IV Q8H [facility] Last Admin: 10/08/17 06:33 Dose: 100 mls/hr Potassium Chloride/Sodium Chloride (1/2 Ns With 20 Meq Kcl) 1,000 mls @ 125 mls /hr IV ASDIRECTED [facility] Last Admin: 10/09/17 04:29 Dose: 125 mls/hr Iopamidol (Isovue-300 (61%)) 100 ml IVPUSH ONETIME ONE Stop: 10/07/17 16:40 Last Admin: 10/07/17 17:13 Dose: 100 ml Ondansetron HCl (Zofran) 4 mg IVPUSH Q4H PRN PRN Reason: Nausea Last Admin: 10/08/17 05:29 Dose: 4 mg Sodium Chloride (Saline Flush) 10 ml FLUSH ONETIME ONE Stop: 10/07/17 16:40 Last Admin: 10/07/17 17:13 Dose: 10 ml - Exam General: Reports: Alert, Oriented, Cooperative, No Acute Distress HEENT: Reports: Pupils Equal, Pupils Reactive, EOMI, Mucous Membr. Moist/[place] Neck: Reports: Supple, Trachea Midline, No JVD, No Thyromegaly Lungs: Reports: Clear to Auscultation, Normal Respiratory Effort Cardiovascular: Reports: Regular Rate, Regular Rhythm GI/Abdominal Exam: Normal Bowel Sounds, Soft, No Organomegaly, No Distention, No Abnormal Bruit, No Mass, Tender, Other (PEG tube on left abdomen). No: Guarding, Rigid, Rebound (Male) Exam: Deferred Rectal (Males) Exam: Deferred Back Exam: Reports: Normal Inspection, Decreased Range of Motion Extremities: Normal Inspection, Normal Range of Motion, Non-Tender, No Pedal Edema, Normal Capillary Refill Skin: Reports: Warm, Dry, Intact Neurological: Reports: No New Focal Deficit Psy/Mental Status: Reports: Alert, Normal Affect, Normal Mood *Q Meaningful Use (DIS) - VTE *Q VTE Criteria *Q: - Stroke *Q Stroke Criteria *Q: - AMI *Q AMI Criteria *Q:
[2017-10-10 12:04] VITALS: BP 148/84
[2017-10-11] MEDS ORDERED: [UNRECOGNIZED DRUG - OTHER] TRDERM SCH (08:30)
== END 2017-10-10 10:47 | disposition home or self-care (01) | DRG 440 ==
LOC: JD.ED 15:44 → JD.MS 19:50
PROVIDERS: ADMIT Internal Medicine Cardiovascular Disease; ATTEND Internal Medicine Cardiovascular Disease
PROC: 3E0234Z Introduction of Serum, Toxoid and Vaccine into Muscle, Percutaneous Approach (ICD-10-PCS; principal; 2017-10-10)
DX: K85.90 Acute pancreatitis without necrosis or infection, unspecified (principal); K86.1 Other chronic pancreatitis; Z86.718 Personal history of other venous thrombosis and embolism; Z79.01 Long term (current) use of anticoagulants; I10 Essential (primary) hypertension; Z79.899 Other long term (current) drug therapy; F17.210 Nicotine dependence, cigarettes, uncomplicated; F10.21 Alcohol dependence, in remission; Z23 Encounter for immunization; Z93.1 Gastrostomy status; K76.9 Liver disease, unspecified
CPT/HCPCS: 36415; 71020; 71020-26; 74177; 74177-26; 80053; 80306; 81001; 82150; 83605; 83690; 85025; 86140; 90686; 96374; 99285; 99285-25; A9270-GY; G0480; J1170; J1956; J2405; J2550; J3480; J7050; Q9963; Q9967

== ENCOUNTER 2018-01-05 13:03 | Emergency (ER) | payer BC, MEDICAID ==
[2018-01-05 13:11] VITALS: BP 162/100
--- NOTE | 2018-01-05 14:36 | EDM.PDOCBH ---
ED HPI GENERAL MEDICAL PROBLEM - General Chief Complaint: Behavioral/Psych Stated Complaint: LAW ENFORCEMENT Time Seen by Provider: 01/05/18 13:10 Source of Information: Reports: Patient History Limitations: Reports: Intoxication - History of Present Illness INITIAL COMMENTS - FREE TEXT/NARRATIVE: The patient presents with police for suicidal ideation. He is an alcoholic and he gets pancreatitis from this. He quit drinking for awhile and now he has started again. He got in a fight with his girlfriend recently. He has been threatening to kill his brother and his brother in law. He also threatened to kill himself. He saw his daughter yesterday and he said goodby to his grandchildren and said he would not see them again and put a finger to his head like with a gun. He was out [place] today and was parked on a mya and threatened to run off the mya. His daughter and son stepped in a stopped him along with the help of law enforcement. He has no pain now. He does admit to drinking some fireball today. 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 (see below) Right Abdomen Pain Score (Numeric/FACES): 4 - Related Data Allergies Allergy/AdvReac Type Severity Reaction Status Date / Time No Known Allergies Allergy Verified 10/07/17 20:05 Home Meds: Home Meds Apixaban [Eliquis] 5 mg PO BID 10/07/17 [History] Lipase/Protease/Amylase [[place] DR 20,000 Unit] 1 each PO TID 10/07/17 [History] Omeprazole Magnesium [Prilosec Otc] 20 mg PO BID 10/07/17 [History] Potassium Chloride [Klor-Con M20] 20 meq PO DAILY 10/07/17 [History] oxyCODONE 5 mg PO Q6H PRN #15 ml 10/10/17 [Rx] Amitriptyline [Elavil] 10 mg PO BEDTIME 01/05/18 [History] Valsartan 80 mg PO 01/05/18 [History] Past Medical History HEENT History: Reports: Impaired Vision Other HEENT History: Wears glasses Cardiovascular History: Reports: Blood Clots/VTE/DVT, Hypertension Respiratory History: Reports: PE Other Respiratory History: pneumonia Gastrointestinal History: Reports: Pancreatitis Other Gastrointestinal History: PEG tube to be removed 10/13/2017 per Patient. Genitourinary History: Reports: None Musculoskeletal History: Reports: None Psychiatric History: Reports: Other (See Below) Other Psychiatric History: Previous Alcohol use. - Past Surgical History GI Surgical History: Reports: Appendectomy Male Surgical History: Reports: Vasectomy Musculoskeletal Surgical History: Reports: Arthroscopic Knee Other Musculoskeletal Surgeries/Procedures:: Right Knee. Social & Family History - Family History Family Medical History: Noncontributory - Tobacco Use Smoking Status *Q: Current Every Day Smoker Years of Tobacco use: 30 Packs/Tins Daily: 0.5 Second Hand Smoke Exposure: No - Caffeine Use Caffeine Use: Reports: Soda Other Caffeine Use: 2 cups a day. - Alcohol Use Date of Last Drink: 01/05/18 Time of Last Drink: 11:00 - Recreational Drug Use Recreational Drug Use: No Other Recreational Drug Type: last used about 1 week ago- joint - Living Situation & Occupation Living situation: Reports: Single (Self-employed) Occupation: Employed ED ROS GENERAL - Review of Systems Review Of Systems: See Below Constitutional: Reports: No Symptoms, Weight Gain HEENT: Reports: No Symptoms Respiratory: Reports: No Symptoms Cardiovascular: Reports: No Symptoms Endocrine: Reports: No Symptoms GI/Abdominal: Reports: No Symptoms : Reports: No Symptoms Musculoskeletal: Reports: No Symptoms ED EXAM, BEHAVIORAL HEALTH - Physical Exam Exam: See Below Exam Limited By: Intoxication General Appearance: Alert, No Apparent Distress Ears: Normal External Exam Nose: Normal Inspection Head: Atraumatic, Normocephalic Neck: Normal Inspection Respiratory/Chest: No Respiratory Distress, Lungs Clear, Normal Breath Sounds Cardiovascular: Regular Rate, Rhythm, No Edema, No Murmur GI/Abdominal: Soft, Non-Tender, No Organomegaly, No Mass Back Exam: Normal Inspection Extremities: Normal Inspection COURSE, BEHAVIORAL HEALTH COMP - Course Vital Signs: Last Vital Signs Temp 98.6 F 01/05/18 13:09 Pulse 125 H 01/05/18 13:09 Resp 20 01/05/18 13:09 BP 162/100 H 01/05/18 13:09 Pulse Ox 98 01/05/18 13:09 Orders, Labs, Meds: Active Orders 24 hr Category Date Time Status Cardiac Monitoring [RC] . DIRECTED Care 01/05/18 13:18 Active Laboratory Tests 01/05/18 01/05/18 01/05/18 Range/Units 13:42 13:42 13:42 WBC 6.56 (4.23-9.07) K/mm3 RBC 5.04 (4.63-6.08) M/mm3 Hgb 15.4 (13.7-17.5) gm/L Hct 48.0 (40.1-51.0) % MCV 95.2 H (79.0-92.2) fl MCH 30.6 (25.7-32.2) pg MCHC 32.1 L (32.2-35.5) g/dl RDW Std Deviation 60.3 H (35.1-43.9) fL Plt Count 531 H (163-337) K/mm3 MPV 8.9 L (9.4-12.3) fl Neut % (Auto) 51.8 (34.0-67.9) % Lymph % (Auto) 34.3 (21.8-53.1) % Sampson % (Auto) 9.9 (5.3-12.2) % Eos % (Auto) 1.5 (0.8-7.0) Baso % (Auto) 2.3 H (0.1-1.2) % Neut # (Auto) 3.40 (1.78-5.38) K/mm3 Lymph # (Auto) 2.25 (1.32-3.57) K/mm3 Sampson # (Auto) 0.65 (0.30-0.82) K/mm3 Eos # (Auto) 0.10 (0.04-0.54) K/mm3 Baso # (Auto) 0.15 H (0.01-0.08) K/mm3 Sodium 149 H (136-145) mEq/L Potassium 3.5 (3.5-5.1) mEq/L Chloride 108 H (98-107) mEq/L Carbon Dioxide 29 (21-32) mEq/L Anion Gap 15.5 H (5-15) BUN 6 L (7-18) mg/dL Creatinine 1.1 (0.7-1.3) mg/dL Est Cr Clr Drug Dosing 72.16 mL/min Estimated GFR (MDRD) > 60 (>60) mL/min BUN/Creatinine Ratio 5.5 L (14-18) Glucose 108 H (74-106) mg/dL Calcium 8.9 (8.5-10.1) mg/dL Total Bilirubin 0.2 (0.2-1.0) mg/dL AST 18 (15-37) U/L ALT 21 (16-63) U/L Alkaline Phosphatase 105 (46-116) U/L Total Protein 7.9 (6.4-8.2) g/dl Albumin 3.6 (3.4-5.0) g/dl Globulin 4.3 gm/dL Albumin/Globulin Ratio 0.8 L (1-2) Lipase 141 (73-393) U/L TSH 3rd Generation 1.256 (0.358-3.74) uIU/mL Salicylates (2.8-20) mg/dL Urine Opiates Screen (NEGATIVE) Ur Buprenorphine Scrn (NEGATIVE) Ur Oxycodone Screen (NEGATIVE) Urine Methadone Screen (NEGATIVE) Ur Propoxyphene Screen (NEGATIVE) Acetaminophen 0 L (10-30) ug/mL Ur Barbiturates Screen (NEGATIVE) Ur Tricyclics Screen (NEGATIVE) Ur Phencyclidine Scrn (NEGATIVE) Ur Amphetamine Screen (NEGATIVE) U Methamphetamines Scrn (NEGATIVE) U Benzodiazepines Scrn (NEGATIVE) U Cocaine Metab Screen (NEGATIVE) U Marijuana (THC) Screen (NEGATIVE) Ethyl Alcohol 0.26 (0.00) gm% 01/05/18 01/05/18 Range/Units 13:42 14:10 WBC (4.23-9.07) K/mm3 RBC (4.63-6.08) M/mm3 Hgb (13.7-17.5) gm/L Hct (40.1-51.0) % MCV (79.0-92.2) fl MCH (25.7-32.2) pg MCHC (32.2-35.5) g/dl RDW Std Deviation (35.1-43.9) fL Plt Count (163-337) K/mm3 MPV (9.4-12.3) fl Neut % (Auto) (34.0-67.9) % Lymph % (Auto) (21.8-53.1) % Sampson % (Auto) (5.3-12.2) % Eos % (Auto) (0.8-7.0) Baso % (Auto) (0.1-1.2) % Neut # (Auto) (1.78-5.38) K/mm3 Lymph # (Auto) (1.32-3.57) K/mm3 Sampson # (Auto) (0.30-0.82) K/mm3 Eos # (Auto) (0.04-0.54) K/mm3 Baso # (Auto) (0.01-0.08) K/mm3 Sodium (136-145) mEq/L Potassium (3.5-5.1) mEq/L Chloride (98-107) mEq/L Carbon Dioxide (21-32) mEq/L Anion Gap (5-15) BUN (7-18) mg/dL Creatinine (0.7-1.3) mg/dL Est Cr Clr Drug Dosing mL/min Estimated GFR (MDRD) (>60) mL/min BUN/Creatinine Ratio (14-18) Glucose (74-106) mg/dL Calcium (8.5-10.1) mg/dL Total Bilirubin (0.2-1.0) mg/dL AST (15-37) U/L ALT (16-63) U/L Alkaline Phosphatase (46-116) U/L Total Protein (6.4-8.2) g/dl Albumin (3.4-5.0) g/dl Globulin gm/dL Albumin/Globulin Ratio (1-2) Lipase (73-393) U/L TSH 3rd Generation (0.358-3.74) uIU/mL Salicylates 3.8 (2.8-20) mg/dL Urine Opiates Screen Negative (NEGATIVE) Ur Buprenorphine Scrn Negative (NEGATIVE) Ur Oxycodone Screen Negative (NEGATIVE) Urine Methadone Screen Negative (NEGATIVE) Ur Propoxyphene Screen Negative (NEGATIVE) Acetaminophen (10-30) ug/mL Ur Barbiturates Screen Negative (NEGATIVE) Ur Tricyclics Screen Negative (NEGATIVE) Ur Phencyclidine Scrn Negative (NEGATIVE) Ur Amphetamine Screen Negative (NEGATIVE) U Methamphetamines Scrn Negative (NEGATIVE) U Benzodiazepines Scrn Negative (NEGATIVE) U Cocaine Metab Screen Negative (NEGATIVE) U Marijuana (THC) Screen Presumptive positive H (NEGATIVE) Ethyl Alcohol (0.00) gm% Re-Assessment/Re-Exam: I ordered labs. The patient was initially not cooperative and called his morals squad police officer. We all talked to his morals squad police officer and I expressed my concern for his safety and his morals squad police officer advised the patient to cooperate. His CBC looks good. His Na was a little elevated at 149. His lipase was normal at 141. His TSH was normal. His salicylated and acetaminophen were negative. His UDS was presumptive positive for marijuana. His ETOH was elevated at 0.26. I am concerned for his safety and the safety of others I called [facility] in [place] and talked with the PA tower control operator for psych and she accepted the patient after I faxed the paperwork. That took awhile. We have trouble faxing to [facility] in [place] to multiple numbers. [facility] here and they will be taking the patient. Departure - Departure Time of Disposition: 16:30 Disposition: DC/Tfer to Psych Hosp/Unit [facility] Condition: Serious Clinical Impression: Suicidal ideation Alcohol intoxication Qualifiers: Complication of substance-induced condition: uncomplicated Qualified Code(s): F10.920 - Alcohol use, unspecified with intoxication, uncomplicated - Discharge Information Referrals: Oliverio Dawson MD [Primary Care Provider] - Forms: ED Department Discharge - My Orders Last 24 Hours: My Active Orders 01/05/18 13:18 Cardiac Monitoring [RC] . DIRECTED - Assessment/Plan Last 24 Hours: My Active Orders 01/05/18 13:18 Cardiac Monitoring [RC] . DIRECTED
== END 2018-01-05 17:10 ==
LOC: JD.ED 13:03 → SUPCPDRO 13:03 → JD.ED 17:10
DX: F10.120 Alcohol abuse with intoxication, uncomplicated (principal); R45.851 Suicidal ideations; I10 Essential (primary) hypertension; F17.210 Nicotine dependence, cigarettes, uncomplicated; Z79.899 Other long term (current) drug therapy; Y90.1 Blood alcohol level of 20-39 mg/100 ml
CPT/HCPCS: 36415; 80053; 80306; 83690; 84443; 85025; 99285; G0480